=== PATIENT | male | born 1925 | race Caucasian/White ===

== ENCOUNTER 2016-06-09 09:22 | Observation (INO) | payer OTHER, BC ==
--- NOTE | 2016-06-09 09:25 | PDOC ---
History of Present Illness - General Chief Complaint: Chest Pain Stated Complaint: CHEST PAIN/SOB Time Seen by Provider: 06/09/16 09:23 History Source: Patient Exam Limitations: No Limitations - History of Present Illness Initial Comments: 06/09/16 09:25 89-year-old male with a past medical history of multiple prior ER visits for abdominal pain associated with anxiety He also has a history of hypertension, hyperlipidemia, CAD, CHF, anxiety Surgical history-cholecystectomy, PCI stent 2 Patient presents to the emergency department this morning, with a complaint of epigastric discomfort He states he can not describe his pain He denies any associated diaphoresis, nausea and vomiting His epigastric symptoms have resolved He states the abdominal pain is diffuse and crampy, and points to all over his abdomen when asked to localize the pain He denies any radiation of pain to the back He denies dysuria or hematuris And he states the pain is similar to what he has had in the past He denies any diarrhea, and he states that he's had intermittent constipation He denies any fevers or chills 06/09/16 09:26 PMH: CAD , HTN, HLD, diastolic dysfunciton, colits, chf, GERD, BPH, chronic abdominal pain PSH: Cholecystectomy, PCI Stent x 2 Meds: please see MAR Social: no current alcohol, drug, cigarette use ALL: NKDA GENERAL/CONSTITUTIONAL: No: fever, chills, weakness, loss of appetite. HEAD, EYES, EARS, NOSE AND THROAT: No: change in vision, ear pain, discharge, sore throat, throat swelling. CARDIOVASCULAR: No: chest pain, lightheadedness, palpitations, syncope RESPIRATORY: No: cough, shortness of breath, wheezing, hemoptysis, stridor. GASTROINTESTINAL: Yes: abdominal pain No: nausea, vomiting GENITOURINARY: No: dysuria, hematuria, frequency, urgency, flank pain. MUSCULOSKELETAL: No: back pain, neck pain, joint pain, muscle swelling or pain SKIN: No: lesions, pallor, rash or easy bruising. NEUROLOGIC: No: headache, vertigo, paresthesias, weakness ENDOCRINE: No: unexplained weight gain or loss HEMATOLOGIC/LYMPHATIC: No: anemia, easy bleeding, swelling nodes. GENERAL: The patient is in no acute distress, alert oriented, speaking in clear sentences HEAD: Normal with no signs of trauma. EYES: PERRLA, EOMI, sclera anicteric, conjunctiva clear. ENT: Ears normal, nares patent, oropharynx clear without exudates. Moist mucous membranes. NECK: Normal range of motion, supple without lymphadenopathy, JVD, or masses. LUNGS: Breath sounds equal, clear to auscultation bilaterally. No wheezes, and no crackles. HEART:Regular rate and rhythm, normal S1 and S2 without murmur, rub or gallop. ABDOMEN: Soft, nontender, normoactive bowel sounds. No involuntary guarding, no rebound. EXTREMITIES: Normal range of motion, no edema. No clubbing or cyanosis. No erythema, or tenderness. NEUROLOGICAL: Cranial nerves II through XII grossly intact. Normal speech. No focal neurological deficits. MUSCULOSKELETAL: Back non-tender to palpation, no CVA tenderness SKIN: Warm, Dry, normal turgor, no rashes or lesions noted. 06/09/16 09:57 06/10/16 08:25 Beta Dodie Contraindications (Core Measure): Yes: Not Prescribed Past History - Past Medical History Allergies/Adverse Reactions: Allergies Allergy/AdvReac Type Severity Reaction Status Date / Time No Known Drug Allergies Allergy Verified 06/09/16 09:24 Home Medications: Ambulatory Orders Atenolol [Tenormin -] 50 mg PO DAILY #0 tablet 08/02/12 Tamsulosin HCl [Flomax -] 0.4 mg PO HS 03/09/14 Olmesartan Medoxomil [Benicar -] 20 mg PO DAILY 09/29/14 Escitalopram Oxalate [Lexapro -] 20 mg PO DAILY 01/20/15 Aspirin [ASA -] 81 mg PO DAILY #30 tab.chew 02/04/15 Clonazepam [KlonoPIN] 1.5 tab PO TID 06/09/16 Dicyclomine HCl [Bentyl] 10 mg PO TID PRN 06/09/16 Simvastatin 40 mg PO DAILY 06/09/16 Anemia: No Asthma: No Cancer: No Cardiac Disorders: Yes (STENTX2 2008) CVA: No COPD: No CHF: No Dementia: No Diabetes: No Dialysis: No GI Disorders: Yes (GERD) Disorders: No HTN: Yes Hypercholesterolemia: Yes HIV: No Liver Disease: No Psychiatric Problems: Yes (ANXIETY) Seizures: No Thyroid Disease: No - Surgical History Abdominal Surgery: No Appendectomy: No Cardiac Surgery: Yes (STENT X2 2009) Cholecystectomy: Yes Lung Surgery: No Neurologic Surgery: No Orthopedic Surgery: No - Psycho/Social/Smoking Cessation Hx Anxiety: No Suicidal Ideation: No Smoking Status: No Smoking History: Never smoked Have you smoked in the past 12 months: No Number of Cigarettes Smoked Daily: 20 If you are a former smoker, when did you quit?: 45 YRS AGO Hx Alcohol Use: No Drug/Substance Use Hx: No Substance Use Type: None Hx Substance Use Treatment: No Cardiac Specific PMH - Complaint Specific PMHX Abdominal Aortic Aneurysm: No Angina: No Cardiac Arrhythmia: No Cardiac Stent: No GERD: Yes Pacemaker: No Pulmonary Embolus: No Valvular Heart Disease: No Peripheral Vascular Disease: No *Physical Exam - Vital Signs Last Vital Signs Temp Pulse Resp BP Pulse Ox 97.5 F L 67 17 132/73 97 06/10/16 06:27 06/10/16 06:27 06/10/16 06:27 06/10/16 06:27 06/10/16 06:27 Heart Score/ECG Review #1 ECG reviewed & interpreted by me at: 10:15 06/09/16 10:15 Twelve-lead EKG was performed and reviewed by me. There is normal sinus rhythm with a normal rate of 64bpm. The axis is normal. The intervals are abnormal - pr :226ms, QRS: 78ms, QTc:455ms . There are no ST or T wave abnormalities. !st degree AV block ED Treatment Course - LABORATORY CBC & Chemistry Diagram: 06/09/16 09:35 06/09/16 09:35 - ADDITIONAL ORDERS Additional order review: 06/09/16 09:35 RBC 4.91 MCV 90.2 MCHC 34.0 RDW 12.0 MPV 9.2 Neutrophils % 65.4 Lymphocytes % 23.9 Monocytes % 9.3 Eosinophils % 1.2 Basophils % 0.2 Medical Decision Making - Medical Decision Making 06/09/16 10:17 Will do labs Will do EKG Will do CXR Will contact pt PMD Will re assess 06/09/16 12:37 Laboratory Tests 06/09/16 06/09/16 06/09/16 09:35 09:35 09:35 WBC 9.1 Hgb 15.1 Hct 44.3 Plt Count 230 Neutrophils % 65.4 Lymphocytes % 23.9 BUN 14 Creatinine 0.8 Random Glucose 121 H D Creatine Kinase 63 Troponin I < 0.03 L Case reviewed with Hospitalist Pt describes epigastric discomfort Has cardiac history Will place on observation for BOBY *DC/Admit/Observation/Transfer Diagnosis at time of Disposition: Epigastric abdominal pain - Discharge Dispostion Condition at time of disposition: Stable Admit: Yes
[2016-06-09 09:51] LABS: BASOPHIL 0.2 % (0-2.0); EOSINOPHIL 1.2 % (0-4.5); MCH 30.7 pg (25.7-33.7); MEAN CELL VOLUME 90.2 fl (80-96); MEAN PLT VOLUME 9.2 fl (7.5-11.1); NEUTROPHILS 65.4 % (42.8-82.8); PLATELET COUNT 230 K/MM3 (134-434); WHITE BLOOD COUNT 9.1 K/mm3 (4.0-10.0)
[2016-06-09 10:05] LABS: ALBUMIN 3.9 g/dl (3.5-5.0); ALK PHOS 48 U/L (32-92); AMYLASE 88 U/L (25-125); ANION GAP 6 (8-16); BILIRUBIN,TOTAL 0.5 mg/dl (0.2-1.0); CALCIUM 8.8 mg/dl (8.4-10.2); CO2 23 mmol/L (22-28); CPK(DFH) 63 IU/L (38-174); CREATININE 0.8 mg/dl (0.6-1.3); GLUCOSE,RANDOM 121 mg/dl (74-106); SGOT/AST 33 U/L (10-42); SGPT/ALT 21 U/L (10-40); TOT PROT 6.6 g/dl (6.4-8.3)
[2016-06-09 10:34] LABS: TROPONIN I (DFP) < 0.03 ng/ml (0.03-0.50)
--- NOTE | 2016-06-09 12:43 | EKG ---
Test Reason : Blood Pressure : / mmHG Vent. Rate : 064 BPM Atrial Rate : 064 BPM P-R Int : 226 ms QRS Dur : 078 ms QT Int : 442 ms P-R-T Axes : 021 -16 -17 degrees QTc Int : 455 ms SINUS RHYTHM WITH 1ST DEGREE A-V BLOCK OTHERWISE NORMAL ECG WHEN COMPARED WITH ECG OF 22-DEC-2012 09:48, NO SIGNIFICANT CHANGE WAS FOUND Confirmed by BROOKE BETANCOURT MD ([id number]) on 06/09/2016 12:43:29 PM Referred By: RUBIA SHEN Confirmed By:BROOKE BETANCOURT MD
[2016-06-09] MEDS ORDERED: DICYCLOMINE HCL 10 MG CAPSULE PO PRN (12:47)
--- NOTE | 2016-06-09 12:49 | HP ---
[id number] male, with a past medical history of hypertension, hyperlipidemia, coronary artery disease (pCI stent 2), diastolic congestive heart failure, anxiety. Patient reports that yesterday evening he developed epigastric pain radiating to his left chest while lying down. Patient reports that the pain resolved on its own. However patient reports this morning while at home resting he developed epigastric pain radiating to his left chest with nausea and sought evaluation in the emergency department. Patient denies any syncopal episode, lightheadedness, or shortness of breath. ER course was notable for: (1) troponin 1 WNL (2) ekg, normal sinus rhythm with first-degree AV block unchanged from prior EKG Recent Travel: none PAST MEDICAL HISTORY:hypertension, hyperlipidemia, CAD, diastolic congestive heart failure, and anxiety. PAST SURGICAL HISTORY: cholecystectomy, PCI stent 2 Social History: tired, resides with his daughter Smoking:none Alcohol:none Drugs: none Family History: noncontributory Allergies No Known Drug Allergies Allergy (Verified 06/09/16 09:24) DENIES HOME MEDICATIONS: Home Medications Medication Instructions Recorded Atenolol [Tenormin -] 50 mg PO DAILY #0 tablet 08/02/12 Tamsulosin HCl [Flomax -] 0.4 mg PO HS 03/09/14 Olmesartan Medoxomil [Benicar -] 20 mg PO DAILY 09/29/14 Escitalopram Oxalate [Lexapro -] 20 mg PO DAILY 01/20/15 Aspirin [ASA -] 81 mg PO DAILY #30 tab.chew 02/04/15 Clonazepam [KlonoPIN] 1.5 tab PO TID 06/09/16 Dicyclomine HCl [Bentyl] 10 mg PO TID PRN 06/09/16 Simvastatin 40 mg PO DAILY 06/09/16 REVIEW OF SYSTEMS CONSTITUTIONAL: Absent: fever, chills, diaphoresis, generalized weakness, malaise, loss of appetite, weight change HEENT: Absent: rhinorrhea, nasal congestion, throat pain, throat swelling, difficulty swallowing, mouth swelling, ear pain, eye pain, visual changes CARDIOVASCULAR: present:chest pain Absent: syncope, palpitations, irregular heart rate, lightheadedness, peripheral edema RESPIRATORY: Absent: cough, shortness of breath, dyspnea with exertion, orthopnea, wheezing, stridor, hemoptysis GASTROINTESTINAL: present: Epigastric pain Absent: abdominal pain, abdominal distension, nausea, vomiting, diarrhea, constipation, melena, hematochezia GENITOURINARY: Absent: dysuria, frequency, urgency, hesitancy, hematuria, flank pain, genital pain MUSCULOSKELETAL: Absent: myalgia, arthralgia, joint swelling, back pain, neck pain SKIN: Absent: rash, itching, pallor HEMATOLOGIC/IMMUNOLOGIC: Absent: easy bleeding, easy bruising, lymphadenopathy, frequent infections ENDOCRINE: Absent: unexplained weight gain, unexplained weight loss, heat intolerance, cold intolerance NEUROLOGIC: Absent: headache, focal weakness or paresthesias, dizziness, unsteady gait, seizure, mental status changes, bladder or bowel incontinence PSYCHIATRIC: Absent: anxiety, depression, suicidal or homicidal ideation, hallucinations. PHYSICAL EXAMINATION Vital Signs - 24 hr 06/09/16 09:23 Temperature 98.5 F Pulse Rate 65 Respiratory 20 Rate Blood Pressure 157/83 O2 Sat by Pulse 97 Oximetry (%) physical examination GENERAL: Awake, alert, and fully oriented, anxious. HEAD: Normal with no signs of trauma. EYES: Pupils equal, round and reactive to light, extraocular movements intact, sclera anicteric, conjunctiva clear. No lid lag. EARS, NOSE, THROAT: Ears normal, nares patent, oropharynx clear without exudates. Moist mucous membranes. NECK: Normal range of motion, supple without lymphadenopathy, JVD, or masses. LUNGS: Breath sounds equal, clear to auscultation bilaterally. No wheezes, and no crackles. No accessory muscle use. HEART: Regular rate and rhythm, normal S1 and S2 without murmur, rub or gallop. ABDOMEN: Soft, nontender, not distended, normoactive bowel sounds, no guarding, no rebound, no masses. No hepatomegaly or splenomegaly. MUSCULOSKELETAL: Normal range of motion at all joints. No bony deformities or tenderness. No CVA tenderness. UPPER EXTREMITIES: 2+ pulses, warm, well-perfused. No cyanosis. No clubbing. No peripheral edema. LOWER EXTREMITIES: 2+ pulses, warm, well-perfused. No calf tenderness. No peripheral edema. NEUROLOGICAL: Cranial nerves II-XII intact. Normal speech. Normal gait. PSYCHIATRIC: Cooperative. Good eye contact. Appropriate mood and affect. SKIN: Warm, dry, normal turgor, no rashes or lesions noted, normal capillary refill. Laboratory Results - last 24 hr 06/09/16 06/09/16 06/09/16 09:35 09:35 09:35 WBC 9.1 RBC 4.91 Hgb 15.1 Hct 44.3 MCV 90.2 MCHC 34.0 RDW 12.0 Plt Count 230 MPV 9.2 Neutrophils % 65.4 Lymphocytes % 23.9 Monocytes % 9.3 Eosinophils % 1.2 Basophils % 0.2 Sodium 134 L Potassium 3.9 Chloride 105 Carbon Dioxide 23 Anion Gap 6 L BUN 14 Creatinine 0.8 Creat Clearance w eGFR > 60 Random Glucose 121 H D Calcium 8.8 Total Bilirubin 0.5 AST 33 D ALT 21 Alkaline Phosphatase 48 Creatine Kinase 63 Troponin I < 0.03 L Total Protein 6.6 Albumin 3.9 Total Amylase 88 Lipase 35 ASSESSMENT/PLAN: 1) card Chest pain R/O ACS - Patient appears anxious upon exam, doubt ACS, since patient has a significant history of coronary artery disease, will order serial troponin - pending ECHO - appreciate cardiology input, Dr Pendleton (pt's private senior brand manager) - continous cardiac monitoring hypertension - continue Benicar and atenolol, strict BP monitoring Diastolic congestive heart failure - Patient appears euvolemic on exam Coronary artery disease - Pending lipid profile in a.m., continue simvastatin 2)GI - Lengthy conversation with the daughter, reports abdominal pain is associated with his anxiety. - Continue Bentyl 3) BPH - continue Flomax 4) psych Anxiety - Continue when necessary Klonopin dosage verified with [facility] pharmacist F/E/N - Low-sodium diet - replete electrolytes when necessary PPX - OOB - Protonix Dispo: requires telemetry observation left into midnight length of stay Visit type - Emergency Visit Emergency Visit: Yes ED Registration Date: 06/09/16 Care time: The patient presented to the Emergency Department on the above date and was hospitalized for further evaluation of their emergent condition. - New Patient This patient is new to me today: Yes Date on this admission: 06/09/16 - Critical Care Critical Care patient: No
[2016-06-09] MEDS ORDERED: clonazePAM 0.5 MG TABLET PO PRN ×2 (12:57→13:21)
[2016-06-09 15:54] LABS: CPK(DFH) 64 IU/L (38-174)
[2016-06-09 16:33] LABS: TROPONIN I (DFP) < 0.03 ng/ml (0.03-0.50)
[2016-06-09 16:39] LABS: URINE APPEARANCE Clear; URINE BILIRUBIN Negative (NEGATIVE); URINE BLOOD Negative (NEGATIVE); URINE GLUCOSE (UA) Negative (NEGATIVE); URINE KETONE Negative (NEGATIVE); URINE LEUK ESTERASE Negative (NEGATIVE); URINE NITRITE Negative (NEGATIVE); URINE PROTEIN Negative (NEGATIVE); URINE UROBILINOGEN 0.2 E.U/dl (0.2-1.0)
[2016-06-09 16:40] LABS: URINE COLOR YELLOW
[2016-06-09 17:15] VITALS: BMI 27.7
[2016-06-09] MEDS ORDERED: TAMSULOSIN HCL 0.4 MG CAP.ER.24H (FP) PO SCH (22:00)
[2016-06-09] MEDS ORDERED: ATORVASTATIN CA 20 MG TABLET (FP) PO SCH (22:00)
[2016-06-10 01:23] LABS: TROPONIN I < 0.02 ng/ml (0.00-0.05)
[2016-06-10 09:47] LABS: MEAN PLT VOLUME 9.5 fl (7.5-11.1)
--- NOTE | 2016-06-10 09:53 | PN ---
[id number] OBJECTIVE:patient is a 89-year-old male, with a past medical history of hypertension, hyperlipidemia, coronary artery disease (pCI stent 2), diastolic congestive heart failure, anxiety. pt was admitted to observation chest pain r/ o acs Vital Signs Period Temp Pulse Resp BP Sys/[place] Pulse Ox Last 24 Hr 97.5 F-97.6 F 67-69 17-18 132-150/68-73 94-97 GENERAL: The patient is awake, alert, and fully oriented, anxious HEAD: Normal with no signs of trauma. EYES: PERRL, extraocular movements intact, sclera anicteric, conjunctiva clear. No ptosis. ENT: Ears normal, nares patent, oropharynx clear without exudates, moist mucous membranes. NECK: Trachea midline, full range of motion, supple. LUNGS: Breath sounds equal, clear to auscultation bilaterally, no wheezes, no crackles, no accessory muscle use. HEART: Regular rate and rhythm, S1, S2 without murmur, rub or gallop. ABDOMEN: Soft, nontender, nondistended, normoactive bowel sounds, no guarding, no rebound, no hepatosplenomegaly, no masses. EXTREMITIES: 2+ pulses, warm, well-perfused, no edema. NEUROLOGICAL: Cranial nerves II through XII grossly intact. Normal speech, gait not observed. PSYCH: Normal mood, normal affect. SKIN: Warm, dry, normal turgor, no rashes or lesions noted Laboratory Results - last 24 hr 06/10/16 06/10/16 00:01 00:01 Creatine Kinase Cancelled 66 Troponin I Cancelled < 0.02 CBC WBC 10.1 K/mm3 (4.0-10.0) H 06/10/16 09:15 RBC 5.29 M/mm3 (4.00-5.60) 06/10/16 09:15 Hgb 16.1 GM/dl (11.7-16.9) 06/10/16 09:15 Hct 48.0 % (35.4-49) 06/10/16 09:15 MCV 90.8 fl (80-96) 06/10/16 09:15 MCHC 33.5 g/dl (32.0-35.9) 06/10/16 09:15 RDW 12.3 % (11.9-15.9) 06/10/16 09:15 Plt Count 234 K/MM3 (134-434) 06/10/16 09:15 MPV 9.5 fl (7.5-11.1) 06/10/16 09:15 Neutrophils % 66.4 % (42.8-82.8) 06/10/16 09:15 Lymphocytes % 23.8 % (8-40) 06/10/16 09:15 Monocytes % 8.5 % (3.8-10.2) 06/10/16 09:15 Eosinophils % 1.1 % (0-4.5) 06/10/16 09:15 Basophils % 0.2 % (0-2.0) 06/10/16 09:15 CMP Sodium 136 mmol/L (136-145) 06/10/16 08:15 Potassium 3.6 mmol/L (3.5-5.1) 06/10/16 08:15 Chloride 103 mmol/L (98-107) 06/10/16 08:15 Carbon Dioxide 24 mmol/L (22-28) 06/10/16 08:15 Anion Gap 9 (8-16) 06/10/16 08:15 BUN 11 mg/dl (7-18) D 06/10/16 08:15 Creatinine 0.8 mg/dl (0.6-1.3) 06/10/16 08:15 Creat Clearance w eGFR > 60 (>60) 06/10/16 08:15 Random Glucose 133 mg/dl (74-106) H 06/10/16 08:15 Calcium 9.2 mg/dl (8.4-10.2) 06/10/16 08:15 Phosphorus 2.7 mg/dl (2.5-4.6) 06/10/16 08:15 Magnesium 2.0 mg/dL (1.8-2.4) 06/10/16 08:15 Total Bilirubin 0.3 mg/dl (0.2-1.0) D 06/10/16 08:15 AST 37 U/L (10-42) 06/10/16 08:15 ALT 22 U/L (10-40) 06/10/16 08:15 Alkaline Phosphatase 49 U/L (32-92) 06/10/16 08:15 Creatine Kinase 66 IU/L (39-308) 06/10/16 00:01 Troponin I < 0.02 ng/ml (0.00-0.05) 06/10/16 00:01 Total Protein 6.8 g/dl (6.4-8.3) 06/10/16 08:15 Albumin 3.9 g/dl (3.5-5.0) 06/10/16 08:15 Triglycerides 157 mg/dl (35-160) D 06/10/16 08:15 Cholesterol 112 mg/dl 06/10/16 08:15 Total LDL Cholesterol 44 mg/dl 06/10/16 08:15 HDL Cholesterol 37 mg/dl (29-89) 06/10/16 08:15 Total Amylase 88 U/L (25-125) 06/09/16 09:35 Lipase 35 U/L (22-51) 06/09/16 09:35 Laboratory Tests 06/09/16 06/09/16 06/10/16 09:35 14:55 00:01 Troponin I < 0.03 L < 0.03 L < 0.02 Active Medications Generic Name Dose Route Start Last Admin Trade Name Freq PRN Reason Stop Dose Admin Aspirin 81 mg 06/10/16 10:00 Asa - PO DAILY [facility] Atenolol 50 mg 06/10/16 10:00 Tenormin - PO DAILY [facility] Atorvastatin Calcium 20 mg 06/09/16 22:00 06/09/16 21:35 Lipitor - PO 20 mg HS JAMEEL Administration Clonazepam 1.5 mg 06/09/16 13:21 06/09/16 21:35 Klonopin - PO 1.5 mg TID PRN Administration ANXIETY Dicyclomine HCl 10 mg 06/09/16 12:47 Bentyl - PO TID PRN PAIN Escitalopram Oxalate 20 mg 06/10/16 10:00 Lexapro - PO DAILY [facility] Tamsulosin HCl 0.4 mg 06/09/16 22:00 06/09/16 21:36 Flomax - PO 0.4 mg HS JAMEEL Administration Valsartan 160 mg 06/10/16 10:00 Diovan - PO DAILY [facility] ASSESSMENT/PLAN: 1) card Chest pain R/O ACS - troponin x 3 wnl - echo grade 1 diastolic dysfunction EF 55-60% - appreciate cardiology input, Dr Pendleton (pt's private upper leather sorter) - continous cardiac monitoring hypertension - continue Benicar and atenolol, strict BP monitoring Diastolic congestive heart failure - Patient appears euvolemic on exam Coronary artery disease - lipid panel wnl, continue simvastatin 2)GI - Lengthy conversation with the daughter, reports abdominal pain is associated with his anxiety. - Continue Bentyl 3) BPH - continue Flomax 4) psych Anxiety - Continue when necessary Klonopin dosage verified with [facility] pharmacist F/E/N - Low-sodium diet - replete electrolytes when necessary PPX - OOB - Protonix Dispo: requires telemetry observation, 2mn length of stay Visit type - Emergency Visit Emergency Visit: Yes ED Registration Date: 06/09/16 Care time: The patient presented to the Emergency Department on the above date and was hospitalized for further evaluation of their emergent condition. - New Patient This patient is new to me today: No - Critical Care Critical Care patient: No - Discharge Referral Referred to [facility] No
[2016-06-10] MEDS ORDERED: PATIENT'S OWN MEDICATION (NON-FORMULARY) (Simvastatin [Simvastatin] 40 MG) PO SCH (10:00)
[2016-06-10] MEDS ORDERED: ATENOLOL 50 MG TABLET (FP) PO SCH (10:00)
[2016-06-10] MEDS ORDERED: ASPIRIN 81 MG CHEWABLE TABLETS PO SCH (10:00)
[2016-06-10] MEDS ORDERED: ESCITALOPRAM OXALATE 20 MG TABLET (FP) PO SCH (10:00)
[2016-06-10] MEDS ORDERED: PATIENT'S OWN MEDICATION (NON-FORMULARY) (Olmesartan Medoxomil 20 MG) PO SCH (10:00)
[2016-06-10] MEDS ORDERED: VALSARTAN 160 MG TABLET (UD) PO SCH (10:00)
[2016-06-10 10:04] LABS: BASOPHIL 0.2 % (0-2.0); EOSINOPHIL 1.1 % (0-4.5); MCH 30.4 pg (25.7-33.7); MCHC 33.5 g/dl (32.0-35.9); MEAN CELL VOLUME 90.8 fl (80-96); NEUTROPHILS 66.4 % (42.8-82.8); PLATELET COUNT 234 K/MM3 (134-434); RDW 12.3 % (11.9-15.9); WHITE BLOOD COUNT 10.1 K/mm3 (4.0-10.0)
[2016-06-10 10:13] LABS: ALBUMIN 3.9 g/dl (3.5-5.0); ALK PHOS 49 U/L (32-92); ANION GAP 9 (8-16); BILIRUBIN,TOTAL 0.3 mg/dl (0.2-1.0); CALCIUM 9.2 mg/dl (8.4-10.2); CO2 24 mmol/L (22-28); COCKROFT - GAULT 71.18; CREATININE 0.8 mg/dl (0.6-1.3); GLUCOSE,RANDOM 133 mg/dl (74-106); PHOSPHOROUS 2.7 mg/dl (2.5-4.6); SGOT/AST 37 U/L (10-42); SGPT/ALT 22 U/L (10-40); TOT PROT 6.8 g/dl (6.4-8.3)
[2016-06-10 13:08] LABS: CHOLESTEROL 112 mg/dl
--- NOTE | 2016-06-10 13:53 | CON.CARD ---
Consult Consult Specialty:: Cardiology Referred by:: Bony Reason for Consultation:: Epigastric discomfort - History of Present Illness Chief Complaint: Epigastric discomfort History of Present Illness: Patient is a 89-year-old male, with a past medical history of hypertension, hyperlipidemia, coronary artery disease (PCI stent ABIGAIL anomolous LCx OM with SURGICAL SUPERVISOR mid RCA 10/12/2006), diastolic congestive heart failure, GERD, irritable bowel syndrome with recurrent abdominal pain presented with non-exertional epigastric pain radiating to his left chest while lying down. Patient reports that the pain resolved on its own. However patient reports this morning while at home resting he developed epigastric pain radiating to his left chest with nausea and sought evaluation in the emergency department. Patient denies any near or true syncopal episodes, palpitations, shortness of breath, orthopnea, PND or LE edema. Recent Travel: none PAST MEDICAL HISTORY:hypertension, hyperlipidemia, CAD, diastolic congestive heart failure, and anxiety. PAST SURGICAL HISTORY: cholecystectomy, PCI stent 2 Social History: tired, resides with his daughter Smoking:none Alcohol:none Drugs: none Family History: noncontributory Allergies No Known Drug Allergies Allergy (Verified 06/09/16 09:24) DENIES - History Source History Provided By: Patient Limitations to Obtaining History: No Limitations - Past Medical History Cardio/Vascular: Yes: CAD (history of 2 prior stents), HTN, Hyperlipdemia Gastrointestinal: Yes: GERD, Other (CHRONIC ABDOMINAL PAIN) Renal/: Yes: BPH Psych: Yes: Anxiety, Depression - Past Surgical History Past Surgical History: Yes: Cholecystectomy, Stent - Alcohol/Substance Use Hx Alcohol Use: No - Smoking History Smoking history: Never smoked Have you smoked in the past 12 months: No Aproximately how many cigarettes per day: 20 If you are a former smoker, when did you quit?: 45 YRS AGO Home Medications - Allergies Allergies/Adverse Reactions: Allergies Allergy/AdvReac Type Severity Reaction Status Date / Time No Known Drug Allergies Allergy Verified 06/09/16 09:24 - Home Medications Home Medications: Ambulatory Orders Atenolol [Tenormin -] 50 mg PO DAILY #0 tablet 08/02/12 Tamsulosin HCl [Flomax -] 0.4 mg PO HS 03/09/14 Olmesartan Medoxomil [Benicar -] 20 mg PO DAILY 09/29/14 Escitalopram Oxalate [Lexapro -] 20 mg PO DAILY 01/20/15 Aspirin [ASA -] 81 mg PO DAILY #30 tab.chew 02/04/15 Clonazepam [KlonoPIN] 1.5 tab PO TID 06/09/16 Dicyclomine HCl [Bentyl] 10 mg PO TID PRN 06/09/16 Simvastatin 40 mg PO DAILY 06/09/16 Review of Systems - Review of Systems Gastrointestinal: reports: Abdominal Pain Vital Signs: Vital Signs Temperature 97.5 F L 06/10/16 06:27 Pulse Rate 67 06/10/16 06:27 Respiratory Rate 17 06/10/16 09:00 Blood Pressure 132/73 06/10/16 06:27 O2 Sat by Pulse Oximetry (%) 97 06/10/16 09:00 Constitutional: Yes: No Distress, Calm Neck: Yes: Supple Respiratory: Yes: Regular, CTA Bilaterally Gastrointestinal: Yes: Normal Bowel Sounds Cardiovascular: Yes: Regular Rate and Rhythm JVD: No Carotid Bruit: No Heart Sounds: Yes: S1, S2 Edema: No - Other Data Labs, Other Data: CBC, BMP 06/10/16 09:15 06/10/16 08:15 Troponin, BNP 06/10/16 06/10/16 00:01 00:01 Troponin I Cancelled < 0.02 Troponin, BNP 06/10/16 06/10/16 00:01 00:01 Troponin I Cancelled < 0.02 SR 1st dev avb Ejection Fraction %: LVEF > or = 40 % Imaging - Results Chest X-ray: Report Reviewed (NAD) Problem List - Problems (1) Epigastric abdominal pain Code(s): R10.13 - EPIGASTRIC PAIN (2) CAD (coronary artery disease) Code(s): I25.10 - ATHSCL HEART DISEASE OF [place] CORONARY ARTERY W/O ANG PCTRS Qualifiers: Coronary Disease-Associated Artery/Lesion type: [place] artery [place] vs. transplanted heart: [place] heart Associated angina: without angina Qualified Code(s): I25.10 - Atherosclerotic heart disease of [place] coronary artery without angina pectoris (3) HTN (hypertension) Code(s): I10 - ESSENTIAL (PRIMARY) HYPERTENSION Qualifiers: Hypertension type: essential hypertension Qualified Code(s): I10 - Essential (primary) hypertension (4) Hyperlipidemia Code(s): E78.5 - HYPERLIPIDEMIA, UNSPECIFIED Qualifiers: Hyperlipidemia type: pure hypercholesterolemia Qualified Code(s): E78.00 - Pure hypercholesterolemia, unspecified; E78.0 - Pure hypercholesterolemia (5) Status post insertion of drug eluting coronary artery stent Code(s): Z95.5 - PRESENCE OF CORONARY ANGIOPLASTY IMPLANT AND GRAFT Assessment/Plan 06/09/2016 Normal LV and RV size and fxn, mild [place], [place], abnl LV compliance 12/07/2014 No ischemia, LVEF 68% 1. Atypical chest pain syndrome, ruled out for [place] 2. CAD s/p PCI(stent), angina pectoris 3. Diastolic dysfunction 4. HTN/HCVD 5. Hyperlipidemia 6. GERD, irritable bowel sydrome with recurrent abd discomfort 7. Anxiety d/o P:1. Ruled out for [place] 2. Continue Atenolol 50 qd, Benicar 20 qd, ASA 81 qd, Zocor 40 qhs 3. July d/c with f/u with Dr. Plascencia in office 2 weeks 4. Thank you for consultative opportunity
[2016-06-10 14:11] VITALS: BP 125/68; PULSE 66; TEMP 97.6
== END 2016-06-10 14:49 | disposition home or self-care (01) ==
LOC: FER 09:22 → FM/S 15:54
PROVIDERS: ADMIT Internal Medicine; ATTEND Nurse Practitioner Family
DX: R07.89 Other chest pain (principal); I10 Essential (primary) hypertension; I25.10 Atherosclerotic heart disease of native coronary artery without angina pectoris; I50.30 Unspecified diastolic (congestive) heart failure; E78.5 Hyperlipidemia, unspecified; F41.9 Anxiety disorder, unspecified; Z95.5 Presence of coronary angioplasty implant and graft; K21.9 Gastro-esophageal reflux disease without esophagitis; K58.9 Irritable bowel syndrome, unspecified; Z90.49 Acquired absence of other specified parts of digestive tract
CPT/HCPCS: 36415; 71020-TC; 80053; 80061; 81003; 82150; 82550; 83690; 83735; 84100; 84484; 85025; 93005; 93306-TC; 99283-25; G0378

== ENCOUNTER 2016-08-01 11:41 | Emergency (ER) | payer OTHER, BC ==
--- NOTE | 2016-08-01 11:52 | PDOC ---
History of Present Illness - General Chief Complaint: Pain, Acute Stated Complaint: abd pain Time Seen by Provider: 08/01/16 11:44 History Source: Patient Exam Limitations: No Limitations - History of Present Illness Travel History: No Initial Comments: 08/01/16 11:49 89 y/o male with abdominal pain since yesterday. No fever or chills. Has diarrhea but no N/V. No fall or trauma. Denies dysuira or back pain. Has not taken anything for the pain. No SOB or chest pain. Timing/Duration: reports: constant Quality: reports: moderate Abdominal Pain Onset Location: reports: suprapubic Pain Radiation: reports: no radiation Past History - Past Medical History Allergies/Adverse Reactions: Allergies Allergy/AdvReac Type Severity Reaction Status Date / Time No Known Drug Allergies Allergy Verified 06/09/16 09:24 Home Medications: Ambulatory Orders Atenolol [Tenormin -] 50 mg PO DAILY #0 tablet 08/02/12 Tamsulosin HCl [Flomax -] 0.4 mg PO HS 03/09/14 Olmesartan Medoxomil [Benicar -] 20 mg PO DAILY 09/29/14 Escitalopram Oxalate [Lexapro -] 20 mg PO DAILY 01/20/15 Aspirin [ASA -] 81 mg PO DAILY #30 tab.chew 02/04/15 Clonazepam [KlonoPIN] 1.5 tab PO TID 06/09/16 Dicyclomine HCl [Bentyl] 10 mg PO TID PRN 06/09/16 Simvastatin 40 mg PO DAILY 06/09/16 Anemia: No Asthma: No Cancer: No Cardiac Disorders: Yes (STENTX2 2008) CVA: No COPD: No CHF: No Dementia: No Diabetes: No Dialysis: No GI Disorders: Yes (GERD) Disorders: No HTN: Yes Hypercholesterolemia: Yes HIV: No Liver Disease: No Psychiatric Problems: Yes (ANXIETY) Seizures: No Thyroid Disease: No - Surgical History Abdominal Surgery: No Appendectomy: No Cardiac Surgery: Yes (STENT 2008) Cholecystectomy: Yes Lung Surgery: No Neurologic Surgery: No Orthopedic Surgery: No - Psycho/Social/Smoking Cessation Hx Anxiety: No Suicidal Ideation: No Smoking Status: No Smoking History: Former smoker Have you smoked in the past 12 months: No Number of Cigarettes Smoked Daily: 20 If you are a former smoker, when did you quit?: 45 YRS AGO Information on smoking cessation initiated: No Hx Alcohol Use: No Drug/Substance Use Hx: No Substance Use Type: None Hx Substance Use Treatment: No Abd/GI Specific PMHX - Complaint Specific PMHX GERD: Yes Review of Systems - Review of Systems Able to Perform ROS?: Yes Is the patient limited [place] proficient: No Constitutional: No: Chills, Fever Respiratory: No: Cough, Shortness of Breath Cardiac (ROS): No: Chest Pain, Palpitations ABD/GI: Yes: Diarrhea. No: Nausea, Vomiting : No: Burning Musculoskeletal: No: Back Pain All Other Systems: Reviewed and Negative *Physical Exam - Vital Signs Last Vital Signs Temp Pulse Resp BP Pulse Ox 98.9 F 75 18 165/95 100 08/01/16 11:42 08/01/16 11:42 08/01/16 11:42 08/01/16 11:42 08/01/16 11:42 - Physical Exam General Appearance: Yes: Nourished, Appropriately Dressed HEENT: positive: EOMI, CECILIA, Normal ENT Inspection, Pharynx Normal Neck: positive: Trachea midline, Supple Respiratory/Chest: positive: Lungs Clear, Normal Breath Sounds Cardiovascular: positive: Regular Rhythm, Regular Rate, S1, S2 Vascular Pulses: Femoral (R): 4+, Femoral (L): 4+, Carotid (R): 4+, Carotid (L) : 4+, Dorsalis-Pedis (R): 4+, Doralis-Pedis (L): 4+ Gastrointestinal/Abdominal: positive: Normal Bowel Sounds, Tender (RLQ and suprapubic tenderness, no LLQ or LUQ tenderness +BS, no pulsatile mass noted) Musculoskeletal: positive: Normal Inspection. negative: CVA Tenderness Extremity: positive: Normal Capillary Refill, Normal Inspection, Normal Range of Motion Integumentary: positive: Normal Color, Dry, Warm Neurologic: positive: summer counselor II-XII NML intact, Fully Oriented, Alert, Normal Mood/ Affect, Normal Response, Motor Strength 5/5 ED Treatment Course - LABORATORY CBC & Chemistry Diagram: 08/01/16 11:53 08/01/16 11:53 - ADDITIONAL ORDERS Additional order review: 08/01/16 13:30 CT abdomen/pelvis, enlarged prostate, no acute pathology Progress Note - Progress Note Progress Note: Pt is doing well, CT negative and labs normal with normal vitals Will discharge home with follow up with PMD if worsen return to ER *DC/Admit/Observation/Transfer Diagnosis at time of Disposition: Abdominal pain of unknown etiology - Discharge Dispostion Disposition: HOME Condition at time of disposition: Stable Admit: No - Patient Instructions Printed Discharge Instructions: DI for Abdominal Pain-Adult Additional Instructions: Fluids, rest, Tylenol If worsen return to ER
[2016-08-01 11:58] VITALS: BMI 26.6
[2016-08-01] MEDS ORDERED: SODIUM CHLORIDE 1,000 ML IV SCH (12:00)
[2016-08-01 12:13] LABS: BASOPHIL 0.5 % (0-2.0); EOSINOPHIL 1.1 % (0-4.5); MCH 30.3 pg (25.7-33.7); MCHC 33.6 g/dl (32.0-35.9); MEAN CELL VOLUME 90.1 fl (80-96); MEAN PLT VOLUME 9.1 fl (7.5-11.1); NEUTROPHILS 59.4 % (42.8-82.8); PLATELET COUNT 215 K/MM3 (134-434); RDW 12.3 % (11.9-15.9); WHITE BLOOD COUNT 9.6 K/mm3 (4.0-10.8)
[2016-08-01 12:22] LABS: ALBUMIN 4.2 g/dl (3.5-5.0); ALK PHOS 56 U/L (32-92); ANION GAP 10 (8-16); CALCIUM 9.7 mg/dl (8.4-10.2); CO2 23 mmol/L (22-28); COCKROFT - GAULT 60.68; CREATININE 0.9 mg/dl (0.6-1.3); GLUCOSE,RANDOM 102 mg/dl (74-106); SGOT/AST 23 U/L (10-42); SGPT/ALT 20 U/L (10-40); TOT PROT 7.3 g/dl (6.4-8.3)
[2016-08-01 12:32] LABS: URINE APPEARANCE Clear; URINE BILIRUBIN Negative (NEGATIVE); URINE BLOOD Negative (NEGATIVE); URINE GLUCOSE (UA) Negative (NEGATIVE); URINE KETONE Negative (NEGATIVE); URINE LEUK ESTERASE Negative (NEGATIVE); URINE NITRITE Negative (NEGATIVE); URINE PROTEIN Negative (NEGATIVE); URINE UROBILINOGEN 0.2 E.U/dl (0.2-1.0)
[2016-08-01 12:33] LABS: URINE COLOR YELLOW
[2016-08-01 13:52] VITALS: BP 130/89; PULSE 73; TEMP 98
== END 2016-08-01 13:54 | disposition home or self-care (01) ==
LOC: FER 11:41
DX: R10.9 Unspecified abdominal pain (principal); R41.9 Unspecified symptoms and signs involving cognitive functions and awareness; I51.9 Heart disease, unspecified; Z95.5 Presence of coronary angioplasty implant and graft; Z87.891 Personal history of nicotine dependence
CPT/HCPCS: 36415; 74177-TC; 80053; 81003; 83690; 85025; 99283-25

== ENCOUNTER 2016-10-25 18:24 | Observation (INO) | payer OTHER, BC ==
[2016-10-25 19:12] LABS: MCHC 33.8 g/dl (32.0-35.9)
[2016-10-25 19:16] LABS: EOSINOPHIL 1.6 % (0-4.5); MEAN CELL VOLUME 88.6 fl (80-96); MEAN PLT VOLUME 9.2 fl (7.5-11.1); NEUTROPHILS 61.8 % (42.8-82.8); PLATELET COUNT 255 K/MM3 (134-434); RDW 12.3 % (11.9-15.9); WHITE BLOOD COUNT 9.6 K/mm3 (4.0-10.8)
[2016-10-25 19:22] LABS: INR 1.01 (0.82-1.09); PROTHROMBIN TIME (PATIENT) 11.3 SEC (10.2-13.0)
[2016-10-25 19:24] LABS: CPK 73 IU/L (39-308)
[2016-10-25 19:25] LABS: ALBUMIN 4.1 g/dl (3.5-5.0); ALK PHOS 54 U/L (32-92); ANION GAP 7 (8-16); BILIRUBIN,TOTAL 0.8 mg/dl (0.2-1.0); CALCIUM 9.6 mg/dl (8.4-10.2); CO2 26 mmol/L (22-28); CREATININE 0.8 mg/dl (0.6-1.3); GLUCOSE,RANDOM 82 mg/dl (74-106); MAGNESIUM 1.8 mg/dL (1.8-2.4); SGOT/AST 25 U/L (10-42); SGPT/ALT 26 U/L (10-40)
--- NOTE | 2016-10-25 19:30 | PDOC ---
History of Present Illness - General History Source: Patient - History of Present Illness Initial Comments: 10/25/16 19:46 89 y/o M with a PMHx of hypertension, hyperlipidemia, CAD, CHF, anxiety, cholecystectomy, PCI stent 2 presents to the ED with sharp chest pain today. He reports associated diaphoresis, SOB, and chills. He also reports some nausea , and 2-3 episodes of diarrhea. Patient took 1 xanax before the pain occurred, and after he began to feel the chest pain he immediately took 2 more xanax. Patient states the pain resolved after taking the xanax. PCP: Dr. Alessandro Lovett <Landy Meade - Last Filed: 10/25/16 19:46> <Samantha Garcia - Last Filed: 10/25/16 20:44> - General Chief Complaint: Chest Pain Stated Complaint: CHEST PAIN, ANXIETY Time Seen by Provider: 10/25/16 19:29 Past History <Landy Meade - Last Filed: 10/25/16 19:46> - Past Medical History Anemia: No Asthma: No Cancer: No Cardiac Disorders: Yes (STENTX2 2008) CVA: No COPD: No CHF: No Dementia: No Diabetes: No Dialysis: No GI Disorders: Yes (GERD) Disorders: No HTN: Yes Hypercholesterolemia: Yes HIV: No Liver Disease: No Psychiatric Problems: Yes (ANXIETY) Seizures: No Thyroid Disease: No - Surgical History Abdominal Surgery: No Appendectomy: No Cardiac Surgery: Yes (STENT X2 2008) Cholecystectomy: Yes Lung Surgery: No Neurologic Surgery: No Orthopedic Surgery: No - Psycho/Social/Smoking Cessation Hx Anxiety: No Suicidal Ideation: No Smoking Status: No Smoking History: Former smoker Have you smoked in the past 12 months: No Number of Cigarettes Smoked Daily: 20 If you are a former smoker, when did you quit?: 1973 Information on smoking cessation initiated: No Hx Alcohol Use: (occasional) Drug/Substance Use Hx: No Substance Use Type: None Hx Substance Use Treatment: No <Samantha Garcia - Last Filed: 10/25/16 20:44> - Past Medical History Allergies/Adverse Reactions: Allergies Allergy/AdvReac Type Severity Reaction Status Date / Time No Known Drug Allergies Allergy Verified 10/25/16 18:26 Home Medications: Ambulatory Orders Atenolol [Tenormin -] 50 mg PO DAILY #0 tablet 08/02/12 Tamsulosin HCl [Flomax -] 0.4 mg PO HS 03/09/14 Olmesartan Medoxomil [Benicar -] 20 mg PO DAILY 09/29/14 Escitalopram Oxalate [Lexapro -] 20 mg PO DAILY 01/20/15 Aspirin [ASA -] 81 mg PO DAILY #30 tab.chew 02/04/15 Clonazepam [KlonoPIN] 0.5 tab PO TID 06/09/16 Dicyclomine HCl [Bentyl] 10 mg PO TID PRN 06/09/16 Simvastatin 40 mg PO DAILY 06/09/16 Review of Systems - Review of Systems Able to Perform ROS?: Yes (vague historian/high) Comments:: 10/25/16 19:46 GENERAL/CONSTITUTIONAL: (+) chills. No fever. No weakness. HEAD, EYES, EARS, NOSE AND THROAT: No change in vision. No ear pain or discharge. No sore throat. CARDIOVASCULAR: (+) chest pain, (+) shortness of breath. RESPIRATORY: No cough, wheezing, or hemoptysis. GASTROINTESTINAL: (+) nausea, diarrhea. No vomiting or constipation. GENITOURINARY: No dysuria, frequency, or change in urination. MUSCULOSKELETAL: No joint or muscle swelling or pain. No neck or back pain. SKIN: No rash NEUROLOGIC: No headache, vertigo, loss of consciousness, or change in strength/ sensation. ENDOCRINE: No increased thirst. No abnormal weight change. HEMATOLOGIC/LYMPHATIC: No anemia, easy bleeding, or history of blood clots. ALLERGIC/IMMUNOLOGIC: No hives or skin allergy. <Landy Meade - Last Filed: 10/25/16 19:46> *Physical Exam - Vital Signs Last Vital Signs Temp Pulse Resp BP Pulse Ox 98 F 68 18 136/79 96 10/25/16 18:25 10/25/16 18:25 10/25/16 18:25 10/25/16 18:25 10/25/16 18:25 - Physical Exam Comments: 10/25/16 19:46 GENERAL: Awake, alert, and fully oriented, in no acute distress HEAD: No signs of trauma EYES: PERRLA, EOMI, sclera anicteric, conjunctiva clear ENT: Auricles normal inspection, hearing grossly normal, nares patent, oropharynx clear without exudates. Moist mucosa NECK: Normal ROM, supple, no lymphadenopathy, JVD, or masses LUNGS: Breath sounds equal, clear to auscultation bilaterally. No wheezes, and no crackles HEART: Regular rate and rhythm, normal S1 and S2, no murmurs, rubs or gallops ABDOMEN: Soft, nontender, normoactive bowel sounds. No guarding, no rebound. No masses EXTREMITIES: Normal range of motion, no edema. No clubbing or cyanosis. No cords, erythema, or tenderness NEUROLOGICAL: Cranial nerves II through XII grossly intact. Normal speech, normal gait SKIN: Warm, Dry, normal turgor, no rashes or lesions noted. <Landy Meade - Last Filed: 10/25/16 19:46> - Vital Signs Last Vital Signs Temp Pulse Resp BP Pulse Ox 98 F 68 18 136/79 96 10/25/16 18:25 10/25/16 18:25 10/25/16 18:25 10/25/16 18:25 10/25/16 18:25 <Samantha Garcia - Last Filed: 10/25/16 20:44> Heart Score/ECG Review - History History: Moderately suspicious - Electrocardiogram EKG: Non specific repolarization disturbance - Age Age: >/= 65 - Risk Factors Risk Factors Heart Score: Yes Hx Hypercholesterolemia, Yes Hx Hypertension, Yes Positive family hx of cardiac disease Based on the list above the patient has:: >/=3 risk factors or Hx atherosclerotic disease - Troponin Troponin: </= normal limit - Score Heart Score - Total: 6 - ECG Impressions Comment:: EKG 18:40- Sinus rhythm, 1st deg AV block, ventricular rate 65 bpm, LAD, LBBB Prior EKG 06/09/16- sinus rhythm with 1st deg AV block (LBBB absent) Prior EKG 02/03/15- Sinus rhythm with 1st deg AV block, LBBB present <Samantha Garcia - Last Filed: 10/25/16 20:44> ED Treatment Course - LABORATORY CBC & Chemistry Diagram: 10/25/16 18:58 10/25/16 18:58 - ADDITIONAL ORDERS Additional order review: Laboratory Results 10/25/16 10/25/16 10/25/16 18:58 18:58 18:58 INR 1.01 Sodium 137 Potassium 4.2 Chloride 104 Carbon Dioxide 26 Anion Gap 7 L BUN 13 Creatinine 0.8 Creat Clearance w eGFR > 60 Random Glucose 82 Calcium 9.6 Magnesium 1.8 Total Bilirubin 0.8 AST 25 ALT 26 D Alkaline Phosphatase 54 Creatine Kinase 73 Total Protein 7.0 Albumin 4.1 10/25/16 18:58 RBC 5.30 MCV 88.6 MCHC 33.8 RDW 12.3 MPV 9.2 Neutrophils % 61.8 Lymphocytes % 23.8 D Monocytes % 11.8 H Eosinophils % 1.6 Basophils % 1.0 - RADIOLOGY Radiograph Interpretation: 10/25/16 19:31 Chest X-Ray Reported by Dr. Rhianna Doran Impression: Interval mild bibasal atelectatic changes. Cannot rule out superimposed infiltrates, in particular on the left. <Landy Meade - Last Filed: 10/25/16 19:46> - LABORATORY CBC & Chemistry Diagram: 10/25/16 18:58 10/25/16 18:58 - ADDITIONAL ORDERS Additional order review: Laboratory Results 10/25/16 10/25/16 10/25/16 18:58 18:58 18:58 INR 1.01 Sodium 137 Potassium 4.2 Chloride 104 Carbon Dioxide 26 Anion Gap 7 L BUN 13 Creatinine 0.8 Creat Clearance w eGFR > 60 Random Glucose 82 Calcium 9.6 Magnesium 1.8 Total Bilirubin 0.8 AST 25 ALT 26 D Alkaline Phosphatase 54 Creatine Kinase 73 Total Protein 7.0 Albumin 4.1 10/25/16 18:58 RBC 5.30 MCV 88.6 MCHC 33.8 RDW 12.3 MPV 9.2 Neutrophils % 61.8 Lymphocytes % 23.8 D Monocytes % 11.8 H Eosinophils % 1.6 Basophils % 1.0 <Samantha Garcia - Last Filed: 10/25/16 20:44> Medical Decision Making - Medical Decision Making Case d/w Dr. Lovett via phone. In light of EKG changes, would recommend placement on obs, requested hospitalist for admission. <Samantha Garcia - Last Filed: 10/25/16 20:44> *DC/Admit/Observation/Transfer - Attestations Scribe Attestion: 10/25/16 19:47 Documentation prepared by Landy Meade, acting as chief medical technologist for Samantha Garcia MD. <Landy Meade - Last Filed: 10/25/16 19:46> - Discharge Dispostion Admit: Yes <Samantha Garcia - Last Filed: 10/25/16 20:44> Diagnosis at time of Disposition: Left bundle branch block (LBBB) Chest pain Qualifiers: Chest pain type: unspecified Qualified Code(s): R07.9 - Chest pain, unspecified - Discharge Dispostion Condition at time of disposition: Stable - Referrals
[2016-10-25 19:47] LABS: TROPONIN I (DFP) < 0.03 ng/ml (0.03-0.50)
[2016-10-25] MEDS ORDERED: ASPIRIN 81 MG CHEWABLE TABLETS PO ONE (19:49)
[2016-10-25] MEDS ORDERED: ASPIRIN 81 MG CHEWABLE TABLETS ONE (19:55)
--- NOTE | 2016-10-25 21:28 | HP ---
CHIEF COMPLAINT: Chest Pain PCP: Dr. Alessandro Lovett HISTORY OF PRESENT ILLNESS: This is a 89 y/o male with a past medical history of CAD, CHF, PCI stents x2 ( 2008), HLD, Anxiety, GERD. Who presents to the ED with chest pain x pm. Patient reports the chest pain to be sharp midsternal with radiation to LCW/Axillary. Patient reports taking a Xanax before the pain occurred then 2 additional tabs for the chest pain- which resolved. Patient admits to feeling anxious from time to time, denies at present. Patient denied SOB or diaphoresis with me during the interview, but had endorsed it according to the ED records. Patient denies fever, chills, cough, AP, N/V/D, constipation, dysuria. ER course was notable for: (1) EKG- SR with 1st Degree AV block, LBBB (2) Cardiac Enzyme neg x1 (3) Chest Xray- mild bibasal atelectatic changes, cannot r/o super imposed infiltrates left Recent Travel: None PAST MEDICAL HISTORY: CAD- PCI stents x2 CHF HLD GERD Anxiety PAST SURGICAL HISTORY: Cholescystectomy PCI Stents x2 (2008) Social History: Smoking: Former Alcohol: Occasional Drugs: None Resides with daughter Family History: Non-Contributory Allergies No Known Drug Allergies Allergy (Verified 10/25/16 18:26) DENIES HOME MEDICATIONS: Home Medications Medication Instructions Recorded Atenolol [Tenormin -] 50 mg PO DAILY #0 tablet 08/02/12 Tamsulosin HCl [Flomax -] 0.4 mg PO HS 03/09/14 Olmesartan Medoxomil [Benicar -] 20 mg PO DAILY 09/29/14 Escitalopram Oxalate [Lexapro -] 20 mg PO DAILY 01/20/15 Aspirin [ASA -] 81 mg PO DAILY #30 tab.chew 02/04/15 Clonazepam [KlonoPIN] 0.5 tab PO TID 06/09/16 Dicyclomine HCl [Bentyl] 10 mg PO TID PRN 06/09/16 Simvastatin 40 mg PO DAILY 06/09/16 REVIEW OF SYSTEMS CONSTITUTIONAL: Absent: fever, chills, diaphoresis, generalized weakness, malaise, loss of appetite, weight change HEENT: Absent: rhinorrhea, nasal congestion, throat pain, throat swelling, difficulty swallowing, mouth swelling, ear pain, eye pain, visual changes CARDIOVASCULAR: chest pain Absent: syncope, palpitations, irregular heart rate, lightheadedness, peripheral edema RESPIRATORY: Absent: cough, shortness of breath, dyspnea with exertion, orthopnea, wheezing, stridor, hemoptysis GASTROINTESTINAL: Absent: abdominal pain, abdominal distension, nausea, vomiting, diarrhea, constipation, melena, hematochezia GENITOURINARY: Absent: dysuria, frequency, urgency, hesitancy, hematuria, flank pain, genital pain MUSCULOSKELETAL: Absent: myalgia, arthralgia, joint swelling, back pain, neck pain SKIN: Absent: rash, itching, pallor HEMATOLOGIC/IMMUNOLOGIC: Absent: easy bleeding, easy bruising, lymphadenopathy, frequent infections ENDOCRINE: Absent: unexplained weight gain, unexplained weight loss, heat intolerance, cold intolerance NEUROLOGIC: Absent: headache, focal weakness or paresthesias, dizziness, unsteady gait, seizure, mental status changes, bladder or bowel incontinence PSYCHIATRIC: anxiety Absent: depression, suicidal or homicidal ideation, hallucinations. PHYSICAL EXAMINATION GENERAL: Awake, alert, and fully oriented, in no acute distress. HEAD: Normal with no signs of trauma. EYES: Pupils equal, round and reactive to light, extraocular movements intact, sclera anicteric, conjunctiva clear. No lid lag. EARS, NOSE, THROAT: Ears normal, nares patent, oropharynx clear without exudates. Moist mucous membranes. NECK: Normal range of motion, supple without lymphadenopathy, JVD, or masses. LUNGS: Breath sounds equal, clear to auscultation bilaterally. No wheezes, and no crackles. No accessory muscle use. HEART: Regular rate and rhythm, normal S1 and S2 without murmur, rub or gallop. CP non-reproducible on palpation ABDOMEN: Soft, nontender, not distended, normoactive bowel sounds, no guarding, no rebound, no masses. No hepatomegaly or splenomegaly. MUSCULOSKELETAL: Normal range of motion at all joints. No bony deformities or tenderness. No CVA tenderness. UPPER EXTREMITIES: 2+ pulses, warm, well-perfused. No cyanosis. No clubbing. No peripheral edema. LOWER EXTREMITIES: 2+ pulses, warm, well-perfused. No calf tenderness. No peripheral edema. NEUROLOGICAL: Cranial nerves II-XII intact. Normal speech. Normal gait. PSYCHIATRIC: Cooperative. Good eye contact. Appropriate mood and affect. SKIN: Warm, dry, normal turgor, no rashes or lesions noted, normal capillary refill. Laboratory Results - last 24 hr 10/25/16 10/25/16 10/25/16 18:58 18:58 18:58 WBC 9.6 RBC 5.30 Hgb 15.9 Hct 47.0 MCV 88.6 MCH 30.0 MCHC 33.8 RDW 12.3 Plt Count 255 MPV 9.2 Neutrophils % 61.8 Lymphocytes % 23.8 D Monocytes % 11.8 H Eosinophils % 1.6 Basophils % 1.0 INR 1.01 Sodium 137 Potassium 4.2 Chloride 104 Carbon Dioxide 26 Anion Gap 7 L BUN 13 Creatinine 0.8 Creat Clearance w eGFR > 60 Random Glucose 82 Calcium 9.6 Magnesium 1.8 Total Bilirubin 0.8 AST 25 ALT 26 D Alkaline Phosphatase 54 Creatine Kinase Troponin I Total Protein 7.0 Albumin 4.1 10/25/16 18:58 WBC RBC Hgb Hct MCV MCH MCHC RDW Plt Count MPV Neutrophils % Lymphocytes % Monocytes % Eosinophils % Basophils % INR Sodium Potassium Chloride Carbon Dioxide Anion Gap BUN Creatinine Creat Clearance w eGFR Random Glucose Calcium Magnesium Total Bilirubin AST ALT Alkaline Phosphatase Creatine Kinase 73 Troponin I < 0.03 L Total Protein Albumin ASSESSMENT/PLAN: This is a 89 y/o male with a PMHx of: CAD, CHF, PCI stents x2, HLD, GERD, Anxiety. Placed on Telemetry Observation for Chest Pain r/o ACS, for further evaluation of their emergent condition. Problem List - Problem (1) Chest pain Assessment/Plan: - r/o ACS vs Anxiety - HEART Score 6 - Cardiac monitoring - Given ASA in ED - Serial Enzymes - Appreciate Cardiology Consult- discussed with Dr. Jose becerril - EKG- SR with 1st degree AV block, LBBB new change compared to prior study 2016 - Echo done 06/2016 showed- LVSF normal function, LVEF 55-60%, Grade 1 diastolic dysfunction, mild , mild AR, mild mitral valve thickening, trace TR, mild PVR - Continue ASA, BB, RRB with parameters for BP - Lipid Panel in am - HgbA1c in am Code(s): R07.9 - CHEST PAIN, UNSPECIFIED Qualifiers: Chest pain type: unspecified Qualified Code(s): R07.9 - Chest pain, unspecified (2) New left bundle branch block Assessment/Plan: - Continue cardiac monitoring - EKG reviewed and compared o prior study - Cardiology aware and will follow Code(s): I44.7 - LEFT BUNDLE-BRANCH BLOCK, UNSPECIFIED (3) CAD (coronary artery disease) Assessment/Plan: - s/p PCI stents - Continue cardiac monitoring - Continue home meds Code(s): I25.10 - ATHSCL HEART DISEASE OF [place] CORONARY ARTERY W/O ANG PCTRS Qualifiers: Coronary Disease-Associated Artery/Lesion type: [place] artery [place] vs. transplanted heart: [place] heart Associated angina: without angina Qualified Code(s): I25.10 - Atherosclerotic heart disease of [place] coronary artery without angina pectoris (4) Hyperlipidemia Assessment/Plan: - Lipid profile in am - Continue Statin tonight - Monitor LFTs Code(s): E78.5 - HYPERLIPIDEMIA, UNSPECIFIED Qualifiers: Hyperlipidemia type: pure hypercholesterolemia Qualified Code(s): E78.00 - Pure hypercholesterolemia, unspecified; E78.0 - Pure hypercholesterolemia (5) HTN (hypertension) Code(s): I10 - ESSENTIAL (PRIMARY) HYPERTENSION Qualifiers: Hypertension type: essential hypertension Qualified Code(s): I10 - Essential (primary) hypertension (6) BPH (benign prostatic hyperplasia) Assessment/Plan: - Continue Flomax Code(s): N40.0 - BENIGN PROSTATIC HYPERPLASIA WITHOUT LOWER URINRY TRACT SYMP (7) Anxiety Assessment/Plan: - Code(s): F41.9 - ANXIETY DISORDER, UNSPECIFIED (8) DVT prophylaxis Assessment/Plan: - OOB - SCDs - Consider AC if LOS > 48 hrs Code(s): [id number] - Visit type - Emergency Visit Emergency Visit: Yes ED Registration Date: 10/25/16 Care time: The patient presented to the Emergency Department on the above date and was hospitalized for further evaluation of their emergent condition. - New Patient This patient is new to me today: Yes Date on this admission: 10/25/16 - Critical Care Critical Care patient: No
[2016-10-25] MEDS ORDERED: ATORVASTATIN CA 20 MG TABLET (FP) PO SCH (22:00)
[2016-10-25 23:13] VITALS: BP 129/70; PULSE 62; TEMP 97.4; BMI 28.1
[2016-10-26] MEDS ORDERED: TAMSULOSIN HCL 0.4 MG CAP.ER.24H (FP) PO SCH (08:30)
[2016-10-26 08:40] LABS: BASOPHIL 0.7 % (0-2.0); EOSINOPHIL 1.7 % (0-4.5); MCH 30.1 pg (25.7-33.7); MCHC 33.8 g/dl (32.0-35.9); MEAN CELL VOLUME 89.2 fl (80-96); MEAN PLT VOLUME 9.3 fl (7.5-11.1); NEUTROPHILS 59.1 % (42.8-82.8); PLATELET COUNT 223 K/MM3 (134-434); RDW 12.5 % (11.9-15.9); WHITE BLOOD COUNT 8.9 K/mm3 (4.0-10.8)
[2016-10-26 08:45] LABS: ANION GAP 9 (8-16); CALCIUM 9.4 mg/dl (8.4-10.2); CO2 23 mmol/L (22-28); CPK 54 IU/L (39-308); CREATININE 0.8 mg/dl (0.6-1.3); GLUCOSE,RANDOM 73 mg/dl (74-106); MAGNESIUM 1.9 mg/dL (1.8-2.4)
[2016-10-26 09:02] LABS: CPK 60 IU/L (39-308); TROPONIN I (DFP) < 0.03 ng/ml (0.03-0.50)
--- NOTE | 2016-10-26 09:13 | CON.CARD ---
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 Patient reports taking a Xanax before the pain occurred then 2 additional tabs for the chest pain- which resolved. Patient admits to feeling anxious from time to time, denies at present. Patient denied SOB, near or true syncope, palpitations, orthopnea, PND ot LE edema. ER course was notable for: (1) EKG- SR with 1st Degree AV block, LBBB (2) Cardiac Enzyme neg x1 (3) Chest Xray- mild bibasal atelectatic changes, cannot r/o super imposed infiltrates left Recent Travel: None PAST MEDICAL HISTORY: CAD- PCI stents x2 CHF HLD GERD Anxiety PAST SURGICAL HISTORY: Cholescystectomy PCI Stents x2 (2008) Social History: Smoking: Former Alcohol: Occasional Drugs: None Resides with daughter Family History: Non-Contributory Allergies No Known Drug Allergies Allergy (Verified 10/25/16 18:26) - History Source History Provided By: Patient Limitations to Obtaining History: No Limitations - Past Medical History Cardio/Vascular: Yes: CAD (history of 2 prior stents), HTN, Hyperlipdemia Gastrointestinal: Yes: GERD, Other (CHRONIC ABDOMINAL PAIN) Renal/: Yes: BPH Psych: Yes: Anxiety, Depression - Past Surgical History Past Surgical History: Yes: Cholecystectomy, Stent - Alcohol/Substance Use Hx Alcohol Use: Yes (occasional) - Smoking History Smoking history: Former smoker Have you smoked in the past 12 months: No Aproximately how many cigarettes per day: 20 If you are a former smoker, when did you quit?: 1978 Home Medications - Allergies Allergies/Adverse Reactions: Allergies Allergy/AdvReac Type Severity Reaction Status Date / Time No Known Drug Allergies Allergy Verified 10/25/16 18:26 - Home Medications Home Medications: Ambulatory Orders Atenolol [Tenormin -] 50 mg PO DAILY #0 tablet 05/30/13 Tamsulosin HCl [Flomax -] 0.4 mg PO HS 03/09/14 Olmesartan Medoxomil [Benicar -] 20 mg PO DAILY 09/29/14 Escitalopram Oxalate [Lexapro -] 20 mg PO DAILY 01/20/15 Aspirin [ASA -] 81 mg PO DAILY #30 tab.chew 02/04/15 Clonazepam [KlonoPIN] 0.5 tab PO TID 06/09/16 Dicyclomine HCl [Bentyl] 10 mg PO TID PRN 06/09/16 Simvastatin 40 mg PO DAILY 06/09/16 Review of Systems - Review of Systems Cardiovascular: reports: Chest Pain Vital Signs: Vital Signs Temperature 97.4 F L 10/25/16 21:30 Pulse Rate 62 10/25/16 21:30 Respiratory Rate 18 10/26/16 08:06 Blood Pressure 129/70 10/25/16 21:30 O2 Sat by Pulse Oximetry (%) 96 10/26/16 08:06 Constitutional: Yes: No Distress, Calm Neck: Yes: Supple Respiratory: Yes: Regular, CTA Bilaterally Gastrointestinal: Yes: Normal Bowel Sounds, Soft, Abdomen, Obese Cardiovascular: Yes: Regular Rate and Rhythm JVD: No Carotid Bruit: No Heart Sounds: Yes: S1, S2 Edema: No - Other Data Labs, Other Data: CBC, BMP 10/26/16 07:00 10/26/16 07:00 INR, PTT INR 1.01 (0.82-1.09) 10/25/16 18:58 Troponin, BNP 10/26/16 00:40 Troponin I < 0.03 L Troponin, BNP 10/26/16 00:40 Troponin I < 0.03 L NSR @ 65 1st deg AVB LBBB Imaging - Results Chest X-ray: Report Reviewed (Mild bibasilar ATX) Problem List - Problems (1) Chest pain Code(s): R07.9 - CHEST PAIN, UNSPECIFIED Qualifiers: Chest pain type: other chest pain Qualified Code(s): R07.89 - Other chest pain; R07.8 - Other chest pain (2) Left bundle branch block (LBBB) Code(s): I44.7 - LEFT BUNDLE-BRANCH BLOCK, UNSPECIFIED (3) Anxiety Code(s): F41.9 - ANXIETY DISORDER, UNSPECIFIED (4) Hyperlipidemia Code(s): E78.5 - HYPERLIPIDEMIA, UNSPECIFIED Qualifiers: Hyperlipidemia type: pure hypercholesterolemia Qualified Code(s): E78.00 - Pure hypercholesterolemia, unspecified; E78.0 - Pure hypercholesterolemia (5) Status post insertion of drug eluting coronary artery stent Code(s): Z95.5 - PRESENCE OF CORONARY ANGIOPLASTY IMPLANT AND GRAFT (6) CAD (coronary artery disease) Code(s): I25.10 - ATHSCL HEART DISEASE OF [place] CORONARY ARTERY W/O ANG PCTRS Qualifiers: Coronary Disease-Associated Artery/Lesion type: [place] artery [place] vs. transplanted heart: [place] heart Associated angina: without angina Qualified Code(s): I25.10 - Atherosclerotic heart disease of [place] coronary artery without angina pectoris (7) HTN (hypertension) Code(s): I10 - ESSENTIAL (PRIMARY) HYPERTENSION Qualifiers: Hypertension type: essential hypertension Qualified Code(s): I10 - Essential (primary) hypertension Assessment/Plan 06/09/2016 Normal LV and RV size and fxn, mild AR, PA, abnl LV compliance 12/17/2014 Small zone of mild inferior ischemia, LVEF 68% 1. Atypical chest pain syndrome, ruled out for SD 2. CAD s/p PCI(stent), angina pectoris 3. Diastolic dysfunction 4. HTN/HCVD 5. Hyperlipidemia 6. GERD, irritable bowel sydrome with recurrent abd discomfort 7. Anxiety d/o 8. Intermittent LBBB 9. Mild carotid atherosclerosis P:1. Ruled out for SD 2. Continue Atenolol 50 qd, Benicar 20 qd, ASA 81 qd, Zocor 40 qhs 3. May d/c with f/u with Dr. Plascencia in office 11/09 9:40 AM, further cardiovascular testing may be performed as outpatient 4. Thank you for consultative opportunity
[2016-10-26] MEDS ORDERED: ATENOLOL 50 MG TABLET (FP) PO SCH (10:00)
[2016-10-26] MEDS ORDERED: ASPIRIN 81 MG CHEWABLE TABLETS PO SCH (10:00)
[2016-10-26] MEDS ORDERED: VALSARTAN 160 MG TABLET (UD) PO SCH (10:00)
--- NOTE | 2016-10-26 10:01 | DS ---
Physical Exam: SUBJECTIVE: Patient seen and examined. Denies chest pain, SOB, nausea/vomiting, abdominal pain, any other symptoms. OBJECTIVE: Vital Signs Period Temp Pulse Resp BP Sys/[place] Pulse Ox Last 24 Hr 97.4 F 62 18-18 129/70 96-96 PHYSICAL EXAM GENERAL: The patient is awake, alert, and fully oriented, in no acute distress. HEAD: Normal with no signs of trauma. EYES: PERRL, extraocular movements intact, sclera anicteric, conjunctiva clear. ENT: Ears normal, nares patent, oropharynx clear without exudates, moist mucous membranes. NECK: Trachea midline, full range of motion, supple. LUNGS: Breath sounds equal, clear to auscultation bilaterally, no wheezes, no crackles, no accessory muscle use. HEART: Regular rate and rhythm, S1, S2 without murmur, rub or gallop. ABDOMEN: Soft, nontender, nondistended, normoactive bowel sounds, no guarding, no rebound, no hepatosplenomegaly, no masses. EXTREMITIES: 2+ pulses, warm, well-perfused, no edema. NEUROLOGICAL: Cranial nerves II through XII grossly intact. Normal speech, gait not observed. PSYCH: Normal mood, normal affect. SKIN: Warm, dry, normal turgor, no rashes or lesions noted. LABS Laboratory Results - last 24 hr 10/26/16 10/26/16 10/26/16 00:40 07:00 07:00 WBC 8.9 RBC 5.25 Hgb 15.8 Hct 46.8 MCV 89.2 MCH 30.1 MCHC 33.8 RDW 12.5 Plt Count 223 MPV 9.3 Neutrophils % 59.1 Lymphocytes % 27.6 Monocytes % 10.9 H Eosinophils % 1.7 Basophils % 0.7 Sodium 137 Potassium 4.1 Chloride 105 Carbon Dioxide 23 Anion Gap 9 BUN 14 Creatinine 0.8 Random Glucose 73 L Calcium 9.4 Phosphorus 3.0 Magnesium 1.9 Creatine Kinase 60 Troponin I < 0.03 L 10/26/16 07:00 WBC RBC Hgb Hct MCV MCH MCHC RDW Plt Count MPV Neutrophils % Lymphocytes % Monocytes % Eosinophils % Basophils % Sodium Potassium Chloride Carbon Dioxide Anion Gap BUN Creatinine Random Glucose Calcium Phosphorus Magnesium Creatine Kinase 54 Troponin I HOSPITAL COURSE: This is an 89 year old male with a history of CAD s/p stent, diastolic CHF, HTN , HLD, GERD, IBS, anxiety on Xanax and Lexapro who presented to the ED last night complaining of chest pain and anxiety not initially relieved by taking Xanax. Hospital course: (1) EKG EKG 18:40- Sinus rhythm, 1st deg AV block, ventricular rate 65 bpm, LBBB (2) CXR: Bibasilar atelectatic changes (3) TNI neg x 3 (4) No events on telemetry Prior testing obtained from office records: 06/09/2016 Normal LV and RV size and fxn, mild AR, [place], abnl LV compliance 12/17/2014 Small zone of mild inferior ischemia, LVEF 68% Intermittent LBBB Today, his symptoms are resolved and he denies all complaints. Plan: -Continue Atenolol 50 qd, Benicar 20 qd, ASA 81 qd, Zocor 40 qhs -F/u with Dr. 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 next week -Return here for recurrent chest pain, shortness of breath, or any other concerning symptoms Referrals: Alessandro Lovett MD [Primary Care Provider] - 1 Week Chayo Plascencia MD [Staff Physician] - 11/09/16 Disposition: HOME - Home Medications Comprehensive Discharge Medication List: Ambulatory Orders Atenolol [Tenormin -] 50 mg PO DAILY #0 tablet 08/02/12 Tamsulosin HCl [Flomax -] 0.4 mg PO HS 03/09/14 Olmesartan Medoxomil [Benicar -] 20 mg PO DAILY 09/29/14 Escitalopram Oxalate [Lexapro -] 20 mg PO DAILY 01/20/15 Aspirin [ASA -] 81 mg PO DAILY #30 tab.chew 02/04/15 Clonazepam [KlonoPIN] 0.5 tab PO TID 06/09/16 Dicyclomine HCl [Bentyl] 10 mg PO TID PRN 06/09/16 Simvastatin 40 mg PO DAILY 06/09/16 Aspirin [ASA -] 81 mg PO DAILY tab.chew 10/26/16 This patient is new to me today: Yes Date on this admission: 10/26/16 Emergency Visit: Yes ED Registration Date: 10/25/16 Care time: The patient presented to the Emergency Department on the above date and was hospitalized for further evaluation of their emergent condition. Critical Care patient: No
[2016-10-26 11:07] LABS: TROPONIN I (DFP) < 0.03 ng/ml (0.03-0.50)
[2016-10-26 11:24] LABS: CHOLESTEROL 117 mg/dl
--- NOTE | 2016-10-26 18:22 | EKG ---
Test Reason : Blood Pressure : / mmHG Vent. Rate : 065 BPM Atrial Rate : 065 BPM P-R Int : 222 ms QRS Dur : 148 ms QT Int : 448 ms P-R-T Axes : 014 -38 057 degrees QTc Int : 465 ms SINUS RHYTHM WITH 1ST DEGREE A-V BLOCK LEFT AXIS DEVIATION LEFT BUNDLE BRANCH BLOCK WHEN COMPARED WITH ECG OF 09-JUN-2016 09:30, LEFT BUNDLE BRANCH BLOCK IS NOW PRESENT Confirmed by MD ABY, JENNIFER ([id number]) on 10/26/2016 6:22:22 PM Referred By: DR PALAFOX Confirmed By:JENNIFER BADILLO MD
[2016-10-27 00:16] LABS: CPK 60 IU/L (39-308); TROPONIN I < 0.02 ng/ml (0.00-0.05)
== END 2016-10-26 10:40 | disposition home or self-care (01) ==
LOC: FER 18:24 → FM/S 20:39
PROVIDERS: ADMIT Internal Medicine; ATTEND Registered Nurse Emergency
DX: R07.89 Other chest pain (principal); I44.7 Left bundle-branch block, unspecified; I25.10 Atherosclerotic heart disease of native coronary artery without angina pectoris; I50.9 Heart failure, unspecified; I10 Essential (primary) hypertension; E78.5 Hyperlipidemia, unspecified; N40.0 Benign prostatic hyperplasia without lower urinary tract symptoms; F41.9 Anxiety disorder, unspecified; K21.9 Gastro-esophageal reflux disease without esophagitis; Z95.5 Presence of coronary angioplasty implant and graft; Z90.49 Acquired absence of other specified parts of digestive tract; Z87.891 Personal history of nicotine dependence; Z79.82 Long term (current) use of aspirin
CPT/HCPCS: 36415; 71020-TC; 80048; 80053; 80061; 83036; 83735; 84100; 84484; 85025; 85610; 93005; 99285-25; G0378

== ENCOUNTER 2016-12-08 12:54 | Emergency (ER) | payer OTHER, BC ==
[2016-12-08 13:31] VITALS: TEMP 98.3; BMI 29.0
--- NOTE | 2016-12-08 14:53 | PDOC ---
History of Present Illness - General History Source: Patient Exam Limitations: No Limitations - History of Present Illness Initial Comments: 12/08/16 15:00 The patient is a 89 year old male, with a significant past medical history of, CAD, CHF, PCI stents x2 (2008), HLD, Anxiety, GERD who presents to the emergency department with, left sided rib pain that began 2 weeks ago. Patient reports left sided rib pain began suddenly 2 weeks ago with no sign of relief. He reports pain is intermittent, stating, it comes every other day. Patient states he has not taken any medication for the pain since its initial development. He denies pain intensity with inspiration, and exertion. He denies chest pain, shortness of breath, headache and dizziness. He denies fever, chills, nausea, vomit, diarrhea and constipation. He denies dysuria, frequency, urgency and hematuria. PMH:CAD- PCI stents x2, CHF, HLD, GERD, Anxiety Allergies: None Past surgical history: Cholecystectomy, PCI Stents x2 (2008). Social history: Lives with ,Former smoker (1978). No tobacco. Social drinker. . PCP: Dr. Lovett <Antolin Cancino - Last Filed: 12/08/16 14:59> <Clive Leroy - Last Filed: 12/08/16 18:42> - General Chief Complaint: Chronic pain Stated Complaint: L SIDE RIBS PAIN Time Seen by Provider: 12/08/16 12:57 Past History <Antolin Cancino - Last Filed: 12/08/16 14:59> - Past Medical History Anemia: No Asthma: No Cancer: No Cardiac Disorders: Yes (STENTX2 2008) CVA: No COPD: No CHF: No Dementia: No Diabetes: No Dialysis: No GI Disorders: Yes (GERD) Disorders: No HTN: Yes Hypercholesterolemia: Yes Liver Disease: No Psychiatric Problems: Yes (ANXIETY) Seizures: No Thyroid Disease: No Lung CA: Yes (CHRONIC ANXIETY) - Surgical History Abdominal Surgery: No Appendectomy: No Cardiac Surgery: Yes (STENT X2 2008) Cholecystectomy: Yes Lung Surgery: No Neurologic Surgery: No Orthopedic Surgery: No - Suicide/Smoking/Psychosocial Hx Smoking Status: No Smoking History: Former smoker Have you smoked in the past 12 months: No Number of Cigarettes Smoked Daily: 20 If you are a former smoker, when did you quit?: 1978 Information on smoking cessation initiated: No Hx Alcohol Use: No Drug/Substance Use Hx: No Substance Use Type: None Hx Substance Use Treatment: No <Clive Leroy - Last Filed: 12/08/16 18:42> - Past Medical History Allergies/Adverse Reactions: Allergies Allergy/AdvReac Type Severity Reaction Status Date / Time No Known Drug Allergies Allergy Verified 12/08/16 13:15 Home Medications: Ambulatory Orders Atenolol [Tenormin -] 50 mg PO DAILY #0 tablet 08/02/12 Tamsulosin HCl [Flomax -] 0.4 mg PO HS 03/09/14 Olmesartan Medoxomil [Benicar -] 20 mg PO DAILY 09/29/14 Escitalopram Oxalate [Lexapro -] 20 mg PO DAILY 01/20/15 Clonazepam [KlonoPIN] 0.5 tab PO TID 06/09/16 Dicyclomine HCl [Bentyl] 10 mg PO TID PRN 06/09/16 Simvastatin 40 mg PO DAILY 06/09/16 Aspirin [ASA -] 81 mg PO DAILY tab.chew 10/26/16 Review of Systems - Review of Systems Able to Perform ROS?: Yes Comments:: 12/08/16 15:00 CONSTITUTIONAL: Absent: Fever, Chills, Diaphoresis, Generalized Weakness, Malaise, Loss of Appetite HEENT: Absent: Rhinorrhea, Nasal Congestion, Throat Pain, Throat Swelling, Difficulty Swallowing, Mouth Swelling, Ear Pain, Eye Pain, Visual Changes CARDIOVASCULAR: Absent: Chest Pain, Syncope, Palpitations, Irregular Heart Rate, Lightheadedness , Peripheral Edema RESPIRATORY: Absent: Cough, Shortness of Breath, SOB with Exertion, Orthopnea, Wheezing, Stridor, Hemoptysis GASTROINTESTINAL: Absent: Abdominal pain, Abdominal Distension, Nausea, Vomiting, Diarrhea, Constipation, Melena, Hematochezia GENITOURINARY: Absent: Dysuria, Frequency, Urgency, Hesitancy, Flank Pain, Genital Pain MUSCULOSKELETAL: +Left sided rib pain. Absent: Myalgia, Arthralgia, Joint Swelling, Back pain, Neck Pain SKIN: Absent: Rash, Itching, PalloR HEMATOLOGIC/IMMUNOLOGIC: Absent: Easy Bleeding, Easy Bruising, Lymphadenopathy, Frequent infections ENDOCRINE: Absent: Unexplained Weight Gain, Unexplained Weight Loss, Heat Intolerance, Cold Intolerance NEUROLOGIC: Absent: Headache, Focal Weakness, Paresthesias, Vertigo, Lightheadedness, Unsteady Gait, Seizure, Mental Status Changes, Incontinence PSYCHIATRIC: Absent: Anxiety, Depression All Other Systems: Reviewed and Negative <Julita,Antolin - Last Filed: 12/08/16 14:59> *Physical Exam - Vital Signs Last Vital Signs Temp Pulse Resp BP Pulse Ox 98.3 F 65 16 153/95 95 12/08/16 13:20 12/08/16 13:20 12/08/16 13:20 12/08/16 13:20 12/08/16 13:20 - Physical Exam Comments: 12/08/16 15:00 GENERAL: The patient is awake, alert, and fully oriented, in no acute distress. HEAD: Normal with no signs of trauma. EYES: Pupils equal, round and reactive to light, extraocular movements intact, sclera anicteric, conjunctiva clear. ENT: Ears normal, nares patent, oropharynx clear without exudates. Moist mucous membranes. NECK: Normal range of motion, supple without lymphadenopathy, JVD, or masses. LUNGS: Breath sounds equal, clear to auscultation bilaterally. No wheezes, and no crackles. HEART: Regular rate and rhythm, normal S1 and S2 without murmur, rub or gallop. MUSCULOSKELETAL: No Rib tenderness to palpation. No tenderness to Rib Squeeze. ABDOMEN: Soft, nontender, normoactive bowel sounds. No guarding, no rebound. No masses. EXTREMITIES: Normal range of motion, no edema. No clubbing or cyanosis. No cords , erythema, or tenderness. NEUROLOGICAL: Cranial nerves II through XII grossly intact. Normal speech, normal gait. PSYCH: Normal mood, normal affect. SKIN: Warm, Dry, normal turgor, no rashes or lesions noted <Antolin Cancino - Last Filed: 12/08/16 14:59> - Vital Signs Last Vital Signs Temp Pulse Resp BP Pulse Ox 98.3 F 65 16 153/95 95 12/08/16 13:20 12/08/16 13:20 12/08/16 13:20 12/08/16 13:20 12/08/16 13:20 <Clive Leroy - Last Filed: 12/08/16 18:42> Heart Score/ECG Review - ECG Intrepretation Comment:: 12/08/16 15:03 Twelve-lead EKG was performed and reviewed by me. There is [normal sinus rhythm with first degree AV block and left bundle branch block] at a rate of [61] beats per minute. The axis is [left]. Impression: Normal sinus rhythm with left bundle branch block which is unchanged from october 25, 2016. <JulitaAntolin - Last Filed: 12/08/16 14:59> ED Treatment Course - LABORATORY CBC & Chemistry Diagram: 12/08/16 15:00 12/08/16 15:00 - RADIOLOGY Radiology Studies Ordered: Category Date Time Status CHEST PA & LAT [RAD] Stat Radiology 12/08/16 14:42 Ordered <Clive Leroy - Last Filed: 12/08/16 18:42> Medical Decision Making - Medical Decision Making 12/08/16 18:38 Patient is an 89-year-old man with a history of frequent abdominal and chest pain. He also has a history of coronary artery disease. He presents today complaining of point pain on the left lateral lower rib. He states the pain is the size of the finger tip. There is no nausea or vomiting. There is no shortness of breath. There is no fever or cough. On examination, the patient appears well. His lungs are clear. His heart is regular rhythm without gallop or murmur. His abdomen is soft and nontender. There is no tenderness to palpation in the ribs or any other area. Extremities are normal. Twelve-lead EKG shows left bundle branch block, normal sinus rhythm. The old EKG shows left bundle branch block as well. There are no acute ischemic criteria on the EKG. The history is highly atypical for acute coronary syndrome. However, given patient's age and history of heart disease, he will be observed in the ED and have serial troponins. He was given Tylenol with relief of pain. His first troponin is negative. Repeat troponin will be performed at 7 PM prior to discharge. CBC is unremarkable. Chemistry is unremarkable. Creatine kinase is normal. Laboratory Results - last 24 hr 12/08/16 12/08/16 12/08/16 15:00 15:00 15:00 WBC 9.7 RBC 5.32 Hgb 15.9 Hct 48.1 MCV 90.4 MCH 29.8 MCHC 33.0 RDW 12.8 Plt Count 230 MPV 9.7 Neutrophils % 63.2 Lymphocytes % 25.4 Monocytes % 9.9 Eosinophils % 1.4 Basophils % 0.1 Sodium 140 Potassium 4.3 Chloride 105 Carbon Dioxide 21 Anion Gap 14 BUN 11 Creatinine 1.0 D Creat Clearance w eGFR > 60 Random Glucose 78 Calcium 9.2 Total Bilirubin 0.4 D AST 19 ALT 27 Alkaline Phosphatase 72 D Creatine Kinase 69 Troponin I < 0.03 L < 0.03 L Total Protein 7.2 Albumin 4.0 12/08/16 18:42 The scribe's documentation has been prepared under my direction and personally reviewed by me in its entirety. I have confirmed that the note above accurately reflects all work, treatment, procedures, and medical decision- making performed by me. <Clive Leroy - Last Filed: 12/08/16 18:42> *DC/Admit/Observation/Transfer - Attestations Scribe Attestion: 12/08/16 15:06 Documentation prepared by Antolin Cancino, acting as medical records administrator for Clive Leroy MD/DO. <Antolin Cancino - Last Filed: 12/08/16 14:59> <Clive Leroy - Last Filed: 12/08/16 18:42> Diagnosis at time of Disposition: Atypical chest pain - Referrals Referrals: Alessandro Lovett MD [Primary Care Provider] -
[2016-12-08 15:24] LABS: BASOPHIL 0.1 % (0-2.0); EOSINOPHIL 1.4 % (0-4.5); MCH 29.8 pg (25.7-33.7); MEAN CELL VOLUME 90.4 fl (80-96); MEAN PLT VOLUME 9.7 fl (7.5-11.1); NEUTROPHILS 63.2 % (42.8-82.8); PLATELET COUNT 230 K/MM3 (134-434); RDW 12.8 % (11.9-15.9); WHITE BLOOD COUNT 9.7 K/mm3 (4.0-10.8)
[2016-12-08 17:11] LABS: ALK PHOS 72 U/L (45-117); ANION GAP 14 (8-16); BILIRUBIN,TOTAL 0.4 mg/dL (0.2-1.0); CALCIUM 9.2 mg/dL (8.5-10.1); CO2 21 mmol/L (21-32); CPK 69 IU/L (39-308); GLUCOSE,RANDOM 78 mg/dL (74-106); SGOT/AST 19 U/L (15-37); SGPT/ALT 27 U/L (12-78); TOT PROT 7.2 g/dl (6.4-8.2)
[2016-12-08 18:15] LABS: TROPONIN I (DFP) < 0.03 ng/ml (0.03-0.50)
[2016-12-08 18:57] VITALS: BP 149/86; PULSE 66
--- NOTE | 2016-12-08 19:43 | PDOC ---
*Physical Exam - Vital Signs Last Vital Signs Temp Pulse Resp BP Pulse Ox 98.3 F 66 16 149/86 96 12/08/16 13:20 12/08/16 18:30 12/08/16 18:30 12/08/16 18:30 12/08/16 18:30 ED Treatment Course - LABORATORY CBC & Chemistry Diagram: 12/08/16 15:00 12/08/16 15:00 - ADDITIONAL ORDERS Additional order review: Laboratory Results 12/08/16 12/08/16 12/08/16 18:50 15:00 15:00 Sodium 140 Potassium 4.3 Chloride 105 Carbon Dioxide 21 Anion Gap 14 BUN 11 Creatinine 1.0 D Creat Clearance w eGFR > 60 Random Glucose 78 Calcium 9.2 Total Bilirubin 0.4 D AST 19 ALT 27 Alkaline Phosphatase 72 D Creatine Kinase 69 Troponin I < 0.03 L < 0.03 L < 0.03 L Total Protein 7.2 Albumin 4.0 12/08/16 15:00 RBC 5.32 MCV 90.4 MCHC 33.0 RDW 12.8 MPV 9.7 Neutrophils % 63.2 Lymphocytes % 25.4 Monocytes % 9.9 Eosinophils % 1.4 Basophils % 0.1 Medical Decision Making - Medical Decision Making 12/08/16 19:41 Pt signed out to me as atypical chest pain pending repeat troponin. Second set of cardiac enzymes is negative. Will discharge patient home. *DC/Admit/Observation/Transfer Diagnosis at time of Disposition: Atypical chest pain - Discharge Dispostion Disposition: HOME Condition at time of disposition: Good - Referrals Referrals: Alessandro Lovett MD [Primary Care Provider] - - Patient Instructions Printed Discharge Instructions: DI for Chest Pain Additional Instructions: return to the ED for new or changing symptoms, especially severe chest pain or shortness of breath. Follow up with your doctor. - Post Discharge Activity
--- NOTE | 2016-12-09 16:42 | EKG ---
Test Reason : Blood Pressure : / mmHG Vent. Rate : 061 BPM Atrial Rate : 061 BPM P-R Int : 238 ms QRS Dur : 144 ms QT Int : 464 ms P-R-T Axes : 023 -36 069 degrees QTc Int : 467 ms SINUS RHYTHM WITH 1ST DEGREE A-V BLOCK LEFT AXIS DEVIATION LEFT BUNDLE BRANCH BLOCK WHEN COMPARED WITH ECG OF 25-OCT-2016 18:40, NO SIGNIFICANT CHANGE WAS FOUND Confirmed by MD ABY, JENNIFER ([id number]) on 12/09/2016 4:42:19 PM Referred By: Sharda ABURTO Confirmed By:JENNIFER BADILLO MD
== END 2016-12-08 19:53 | disposition home or self-care (01) ==
LOC: FER 12:54 → SUPCPDRO 12:54 → FER 19:53
DX: R07.89 Other chest pain (principal); Z95.5 Presence of coronary angioplasty implant and graft; K21.9 Gastro-esophageal reflux disease without esophagitis; F41.9 Anxiety disorder, unspecified; I10 Essential (primary) hypertension
CPT/HCPCS: 36415; 71020-TC; 80053; 84484; 85025; 93005; 99285-25

== ENCOUNTER 2016-12-30 22:09 | Observation (INO) | payer OTHER, BC ==
--- NOTE | 2016-12-30 22:20 | PDOC ---
History of Present Illness - General Chief Complaint: Pain Stated Complaint: ABDOMINAL PAIN Time Seen by Provider: 12/30/16 22:16 History Source: Patient Exam Limitations: No Limitations - History of Present Illness Initial Comments: 12/30/16 22:18 This is an 89-year-old male who is a relatively poor historian. Patient cannot remember the answer to a number of the questions that I asked him. Patient however does state that he did develop upper abdominal pain this morning and has had it all day. Patient cannot recall what he had for breakfast and if it was fatty. Patient denies any radiation to his chest. He denied any shortness of breath, nausea, diaphoresis. Patient says he took 3 antacids for the pain without relief. Patient does have a past history of gastritis. He denies any fevers or chills. He denies any vomiting or diarrhea. He said he did move his bowels today and they were normal. He denies any history of abdominal surgeries. PAST MEDICAL HISTORY: As per history of present illness PAST SURGICAL HISTORY: no significant history FAMILY HISTORY: no pertinant history SOCIAL HISTORY: Pt lives with family and is employed. MEDICATIONS: reviewed ALLERGIES: As per nursing notes Review of Systems General: No fevers or chills, no weakness, no weight loss HEENT: No change in vision. No sore throat,. No ear pain CardioVascular: No chest pain or shortness of breath Respiratory:No cough, or wheezing. Gastrointestinal: + nausea, vomitting, diarrhea or constipation, No rectal bleeding, abdominal pain as per history of present illness Genitourinary: No dysuria, hematuria, or frequency Musculoskeletal: No joint or muscle pain or swelling Neurologic: No headache, vertigo, dizziness or loss of consciousness Psychiatric: nor depression Skin: No rashes or easy bruising Endocrine: no increased thirst or abnormal weight change Allergic: no skin or latex allergy All other systems reviewed and normal Exam: General: Well-nourished well-developed individual, no acute distress HEENT: Throat: Normal, tonsils normal, no erythema or exudate Neck: Supple, no meningeal signs, no lymphadenopathy Eyes::Pupils equal reactive and round, extraocular motion intact Chest: Nontender to palpation Cardiac: S1-S2 normal, regular rate and rhythm, no murmurs rubs or gallops Respiratory: Lungs clear to auscultation bilateral Abdomen: Soft, nondistended, , mild to moderately tender on palpation right upper quadrant no guarding or rebound. Bowel sounds are slightly increased. Extremities: Warm, dry, no cyanosis, clubbing, or edema Skin: No rashes Neuro: Alert and oriented x3, nonfocal exam, grossly intact, normal gait Psych: Normal mood and affect Ultrasound shows no acute pathology patient status post gallbladder removal CT scan shows a 4.5 cm fluid and air-filled diverticulum noted off the second portion of the duodenum it is of questionable significance. 12/31/16 02:15 reevaluation: pt still has moderate amount of tenderness on palpation of the periumbilical area of his abdomen. Assessment and plan: This is a 89-year-old male who comes in complaining of abdominal pain. Patient does have a mildly elevated white count but no left shift and is afebrile. Patient's CAT scan shows a diverticulum that is enlarged and fluid-filled but no inflammatory changes. This is a possible source of the patient's pain. Given the patient's age of 89, his mildly elevated white count and his persistent tenderness in that area patient started on Levaquin and Flagyl and will be admitted to an obstetric bed overnight for reevaluation of his blood work and reassessment of his clinical condition in the morning. Past History - Past Medical History Allergies/Adverse Reactions: Allergies Allergy/AdvReac Type Severity Reaction Status Date / Time No Known Drug Allergies Allergy Verified 12/30/16 22:10 Home Medications: Ambulatory Orders Atenolol [Tenormin -] 50 mg PO DAILY #0 tablet 08/02/12 Olmesartan Medoxomil [Benicar -] 20 mg PO DAILY 09/29/14 Escitalopram Oxalate [Lexapro -] 20 mg PO DAILY 01/20/15 Simvastatin 40 mg PO DAILY 06/09/16 Anemia: No Asthma: No Cancer: No Cardiac Disorders: Yes (STENTX2 2008) CVA: No COPD: No CHF: No Dementia: No Diabetes: No Dialysis: No GI Disorders: Yes (GERD) Disorders: No HTN: Yes Hypercholesterolemia: Yes Liver Disease: No Psychiatric Problems: Yes (ANXIETY) Seizures: No Thyroid Disease: No Lung CA: Yes (CHRONIC ANXIETY) - Surgical History Abdominal Surgery: No Appendectomy: No Cardiac Surgery: Yes (STENT X2 2008) Cholecystectomy: Yes Lung Surgery: No Neurologic Surgery: No Orthopedic Surgery: No - Suicide/Smoking/Psychosocial Hx Smoking Status: No Smoking History: Former smoker Have you smoked in the past 12 months: No Number of Cigarettes Smoked Daily: 20 If you are a former smoker, when did you quit?: 1974 Information on smoking cessation initiated: No Hx Alcohol Use: No Drug/Substance Use Hx: No Substance Use Type: None Hx Substance Use Treatment: No Abd/GI Specific PMHX - Complaint Specific PMHX GERD: Yes *Physical Exam - Vital Signs Last Vital Signs Temp Pulse Resp BP Pulse Ox 97.7 F 83 20 158/101 98 12/30/16 22:12 12/30/16 22:12 12/30/16 22:12 12/30/16 22:12 12/30/16 22:12 ED Treatment Course - LABORATORY CBC & Chemistry Diagram: 12/30/16 22:50 12/30/16 22:50 *DC/Admit/Observation/Transfer Diagnosis at time of Disposition: Diverticulitis of intestine Qualifiers: Diverticulitis site: unspecified part of intestinal tract Diverticulitis bleeding: without bleeding Diverticulitis complication: without perforation or abscess Qualified Code(s): K57.92 - Diverticulitis of intestine, part unspecified, without perforation or abscess without bleeding; K57.92 - Diverticulitis of intestine, part unspecified, without perforation or abscess without bleeding - Discharge Dispostion Condition at time of disposition: Stable Admit: Yes
[2016-12-30] MEDS ORDERED: SODIUM CHLORIDE 1,000 ML IV ONE (22:27)
[2016-12-30] MEDS ORDERED: KETOROLAC TROMETHAMINE 30 MG/1 ML VIAL IVPUSH ONE (22:28)
[2016-12-30] MEDS ORDERED: KETOROLAC TROMETHAMINE 30 MG/1 ML VIAL ONE (22:58)
[2016-12-30 23:07] LABS: BASOPHIL 0.9 % (0-2.0); EOSINOPHIL 1.1 % (0-4.5); MCH 29.9 pg (25.7-33.7); MCHC 33.6 g/dl (32.0-35.9); MEAN CELL VOLUME 89.1 fl (80-96); MEAN PLT VOLUME 9.1 fl (7.5-11.1); NEUTROPHILS 69.1 % (42.8-82.8); PLATELET COUNT 238 K/MM3 (134-434); RDW 12.4 % (11.9-15.9); WHITE BLOOD COUNT 11.5 K/mm3 (4.0-10.8)
[2016-12-30 23:21] LABS: CPK 69 IU/L (39-308)
[2016-12-30 23:22] LABS: ALBUMIN 4.1 g/dl (3.5-5.0); ALK PHOS 51 U/L (32-92); ANION GAP 10 (8-16); BILIRUBIN,TOTAL 0.6 mg/dl (0.2-1.0); CALCIUM 9.4 mg/dl (8.4-10.2); CO2 23 mmol/L (22-28); GLUCOSE,RANDOM 101 mg/dl (74-106); SGOT/AST 26 U/L (10-42); SGPT/ALT 19 U/L (10-40); TOT PROT 7.3 g/dl (6.4-8.3)
[2016-12-30 23:38] LABS: TROPONIN I (DFP) < 0.03 ng/ml (0.03-0.50)
[2016-12-31] MEDS ORDERED: LEVOFLOXACIN 500 MG IVPB 100 ML IVPB ONE ×2 (02:25→02:31)
[2016-12-31] MEDS ORDERED: METRONIDAZOLE 500 MG PREMIXED 100 ML IVPB ONE ×2 (02:25→02:30)
[2016-12-31] MEDS ORDERED: FAMOTIDINE 20 MG/50 ML IVPB 50 ML IVPB ONE ×2 (02:46→03:12)
[2016-12-31] MEDS ORDERED: morphine CARPU-JECT 2 MG/1 ML DISP.SYRIN IVPUSH ONE (02:46)
[2016-12-31] MEDS ORDERED: morphine CARPU-JECT 2 MG/1 ML DISP.SYRIN ONE (03:12)
[2016-12-31 04:42] VITALS: BMI 31.5
[2016-12-31 07:37] LABS: MCH 29.6 pg (25.7-33.7); MCHC 32.9 g/dl (32.0-35.9); MEAN CELL VOLUME 89.9 fl (80-96); MEAN PLT VOLUME 9.2 fl (7.5-11.1); PLATELET COUNT 200 K/MM3 (134-434); RDW 12.6 % (11.9-15.9); WHITE BLOOD COUNT 10.4 K/mm3 (4.0-10.8)
[2016-12-31 08:07] LABS: ALBUMIN 3.4 g/dl (3.5-5.0); ALK PHOS 42 U/L (32-92); ANION GAP 5 (8-16); BILIRUBIN,TOTAL 0.8 mg/dl (0.2-1.0); CALCIUM 8.7 mg/dl (8.4-10.2); CO2 27 mmol/L (22-28); GLUCOSE,RANDOM 69 mg/dl (74-106); MAGNESIUM 1.7 mg/dL (1.8-2.4); PHOSPHOROUS 3.4 mg/dl (2.5-4.6); SGOT/AST 18 U/L (10-42); SGPT/ALT 17 U/L (10-40); TOT PROT 5.9 g/dl (6.4-8.3)
[2016-12-31 09:23] LABS: URINE APPEARANCE Clear; URINE BILIRUBIN Negative (NEGATIVE); URINE BLOOD Negative (NEGATIVE); URINE GLUCOSE (UA) Negative (NEGATIVE); URINE KETONE Negative (NEGATIVE); URINE LEUK ESTERASE Negative (NEGATIVE); URINE NITRITE Negative (NEGATIVE); URINE PROTEIN 1+ (NEGATIVE); URINE UROBILINOGEN 0.2 (0.2-1.0)
[2016-12-31 09:24] LABS: URINE COLOR AMBER
[2016-12-31 09:39] LABS: URINE WBC 0-2 (3-5)
[2016-12-31] MEDS ORDERED: CEFTRIAXONE 1 G/50 ML PREMIX 50 ML IVPB SCH (10:00)
[2016-12-31] MEDS ORDERED: HEPARIN NA (PORCINE) 5,000 UNITS/ML 1ML VIAL SQ SCH (10:00)
[2016-12-31] MEDS ORDERED: METRONIDAZOLE 500 MG PREMIXED 100 ML IVPB SCH (10:00)
--- NOTE | 2016-12-31 13:41 | HP ---
CHIEF COMPLAINT: PCP: HISTORY OF PRESENT ILLNESS: ER course was notable for: (1) (2) (3) Recent Travel: PAST MEDICAL HISTORY: PAST SURGICAL HISTORY: Social History: Smoking: Alcohol: Drugs: Family History: Allergies levofloxacin [From Levaquin] Allergy (Intermediate, Verified 12/31/16 04:14) Itching rashes No Known Drug Allergies Allergy (Verified 12/30/16 22:10) DENIES HOME MEDICATIONS: Home Medications Medication Instructions Recorded Atenolol [Tenormin -] 50 mg PO DAILY #0 tablet 08/02/12 Olmesartan Medoxomil [Benicar -] 20 mg PO DAILY 09/29/14 Escitalopram Oxalate [Lexapro -] 20 mg PO DAILY 01/20/15 Simvastatin 40 mg PO DAILY 06/09/16 REVIEW OF SYSTEMS CONSTITUTIONAL: Absent: fever, chills, diaphoresis, generalized weakness, malaise, loss of appetite, weight change HEENT: Absent: rhinorrhea, nasal congestion, throat pain, throat swelling, difficulty swallowing, mouth swelling, ear pain, eye pain, visual changes CARDIOVASCULAR: Absent: chest pain, syncope, palpitations, irregular heart rate, lightheadedness , peripheral edema RESPIRATORY: Absent: cough, shortness of breath, dyspnea with exertion, orthopnea, wheezing, stridor, hemoptysis GASTROINTESTINAL: Absent: abdominal pain, abdominal distension, nausea, vomiting, diarrhea, constipation, melena, hematochezia GENITOURINARY: Absent: dysuria, frequency, urgency, hesitancy, hematuria, flank pain, genital pain MUSCULOSKELETAL: Absent: myalgia, arthralgia, joint swelling, back pain, neck pain SKIN: Absent: rash, itching, pallor HEMATOLOGIC/IMMUNOLOGIC: Absent: easy bleeding, easy bruising, lymphadenopathy, frequent infections ENDOCRINE: Absent: unexplained weight gain, unexplained weight loss, heat intolerance, cold intolerance NEUROLOGIC: Absent: headache, focal weakness or paresthesias, dizziness, unsteady gait, seizure, mental status changes, bladder or bowel incontinence PSYCHIATRIC: Absent: anxiety, depression, suicidal or homicidal ideation, hallucinations. PHYSICAL EXAMINATION Vital Signs - 24 hr 12/31/16 12/31/16 12/31/16 03:42 04:31 05:22 Temperature 98.3 F 97.9 F 97.9 F Pulse Rate 62 62 Pulse Rate [ 68 Right Radial] Respiratory 20 17 17 Rate Blood Pressure 145/80 145/80 Blood Pressure 147/80 [Left Arm] O2 Sat by Pulse 97 94 L 94 L Oximetry (%) 12/31/16 12/31/16 06:05 08:54 Temperature 98.0 F Pulse Rate 60 Pulse Rate [ Right Radial] Respiratory 18 18 Rate Blood Pressure 137/75 Blood Pressure [Left Arm] O2 Sat by Pulse 94 L Oximetry (%) GENERAL: Awake, alert, and fully oriented, in no acute distress. HEAD: Normal with no signs of trauma. EYES: Pupils equal, round and reactive to light, extraocular movements intact, sclera anicteric, conjunctiva clear. No lid lag. EARS, NOSE, THROAT: Ears normal, nares patent, oropharynx clear without exudates. Moist mucous membranes. NECK: Normal range of motion, supple without lymphadenopathy, JVD, or masses. LUNGS: Breath sounds equal, clear to auscultation bilaterally. No wheezes, and no crackles. No accessory muscle use. HEART: Regular rate and rhythm, normal S1 and S2 without murmur, rub or gallop. ABDOMEN: Soft, nontender, not distended, normoactive bowel sounds, no guarding, no rebound, no masses. No hepatomegaly or splenomegaly. MUSCULOSKELETAL: Normal range of motion at all joints. No bony deformities or tenderness. No CVA tenderness. UPPER EXTREMITIES: 2+ pulses, warm, well-perfused. No cyanosis. No clubbing. No peripheral edema. LOWER EXTREMITIES: 2+ pulses, warm, well-perfused. No calf tenderness. No peripheral edema. NEUROLOGICAL: Cranial nerves II-XII intact. Normal speech. Normal gait. PSYCHIATRIC: Cooperative. Good eye contact. Appropriate mood and affect. SKIN: Warm, dry, normal turgor, no rashes or lesions noted, normal capillary refill. Laboratory Results - last 24 hr 3 12/31/16 12/31/16 12/31/16 05:00 07:20 07:20 WBC 10.4 RBC 4.83 Hgb 14.3 D Hct 43.4 MCV 89.9 MCH 29.6 MCHC 32.9 RDW 12.6 Plt Count 200 MPV 9.2 Sodium 137 Potassium 4.6 Chloride 105 Carbon Dioxide 27 Anion Gap 5 L BUN 15 Creatinine 1.0 Creat Clearance w eGFR > 60 Random Glucose 69 L D Calcium 8.7 Phosphorus 3.4 Magnesium 1.7 L Total Bilirubin 0.8 D AST 18 D ALT 17 Alkaline Phosphatase 42 Total Protein 5.9 L Albumin 3.4 L Urine Color [place] Urine Appearance Clear Urine pH 5.0 D Ur Specific [place] <= 1.005 Urine Protein 1+ H Urine Glucose (UA) Negative Urine Ketones Negative Urine Blood Negative Urine Nitrite Negative Urine Bilirubin Negative Urine Urobilinogen 0.2 Ur Leukocyte Esterase Negative Urine WBC 0-2 ECG Sinus rhythm with 1st degree AV block Left axis deviation LBBB unchange when compared with ECG 12/08/16 ASSESSMENT/PLAN:
--- NOTE | 2016-12-31 13:54 | DS ---
Physical Exam: SUBJECTIVE: Patient seen and examined OBJECTIVE: Vital Signs Period Temp Pulse Resp BP Sys/[place] Pulse Ox Last 24 Hr 97.9 F-98.3 F 60-68 17-20 137-147/75-80 94-97 PHYSICAL EXAM GENERAL: The patient is awake, alert, and fully oriented, in no acute distress. HEAD: Normal with no signs of trauma. EYES: PERRL, extraocular movements intact, sclera anicteric, conjunctiva clear. ENT: Ears normal, nares patent, oropharynx clear without exudates, moist mucous membranes. NECK: Trachea midline, full range of motion, supple. LUNGS: Breath sounds equal, clear to auscultation bilaterally, no wheezes, no crackles, no accessory muscle use. HEART: Regular rate and rhythm, S1, S2 without murmur, rub or gallop. ABDOMEN: Soft, nontender, nondistended, normoactive bowel sounds, no guarding, no rebound, no hepatosplenomegaly, no masses. EXTREMITIES: 2+ pulses, warm, well-perfused, no edema. NEUROLOGICAL: Cranial nerves II through XII grossly intact. Normal speech, gait not observed. PSYCH: Normal mood, normal affect. SKIN: Warm, dry, normal turgor, no rashes or lesions noted. LABS Laboratory Results - last 24 hr 12/31/16 12/31/16 12/31/16 05:00 07:20 07:20 WBC 10.4 RBC 4.83 Hgb 14.3 D Hct 43.4 MCV 89.9 MCH 29.6 MCHC 32.9 RDW 12.6 Plt Count 200 MPV 9.2 Sodium 137 Potassium 4.6 Chloride 105 Carbon Dioxide 27 Anion Gap 5 L BUN 15 Creatinine 1.0 Creat Clearance w eGFR > 60 Random Glucose 69 L D Calcium 8.7 Phosphorus 3.4 Magnesium 1.7 L Total Bilirubin 0.8 D AST 18 D ALT 17 Alkaline Phosphatase 42 Total Protein 5.9 L Albumin 3.4 L Urine Color [place] Urine Appearance Clear Urine pH 5.0 D Ur Specific [place] <= 1.005 Urine Protein 1+ H Urine Glucose (UA) Negative Urine Ketones Negative Urine Blood Negative Urine Nitrite Negative Urine Bilirubin Negative Urine Urobilinogen 0.2 Ur Leukocyte Esterase Negative Urine WBC 0-2 HOSPITAL COURSE: Date of Admission:12/31/16 Date of Discharge: 12/31/16 Discharge Summary Reason For Visit: DIVERTICULITIS Current Active Problems Diverticulitis (Acute) Condition: Stable - Instructions Diet, Activity, Other Instructions: Return to the Emergency Department for new, worsening or persistent abdominal pain. Resume your usual diet and activities as tolerated. Follow up with your primary care provider in 1-2 weeks. Referrals: Alessandro Lovett MD [Staff Physician] - 1 Week Disposition: HOME - Home Medications Comprehensive Discharge Medication List: Ambulatory Orders Atenolol [Tenormin -] 50 mg PO DAILY #0 tablet 08/02/12 Olmesartan Medoxomil [Benicar -] 20 mg PO DAILY 09/29/14 Escitalopram Oxalate [Lexapro -] 20 mg PO DAILY 01/20/15 Simvastatin 40 mg PO DAILY 06/09/16
[2016-12-31] MEDS ORDERED: MAGNESIUM SULF 50% (8.12 MEQ/2 ML-1 GM VIAL) IVPB ONE (14:30)
[2016-12-31 14:37] VITALS: BP 155/84; PULSE 73; TEMP 98.3
--- NOTE | 2017-01-03 18:32 | EKG ---
Test Reason : Blood Pressure : / mmHG Vent. Rate : 062 BPM Atrial Rate : 062 BPM P-R Int : 216 ms QRS Dur : 140 ms QT Int : 474 ms P-R-T Axes : -15 -30 046 degrees QTc Int : 481 ms SINUS RHYTHM WITH 1ST DEGREE A-V BLOCK LEFT AXIS DEVIATION LEFT BUNDLE BRANCH BLOCK ABNORMAL ECG WHEN COMPARED WITH ECG OF 08-DEC-2016 13:39, NO SIGNIFICANT CHANGE WAS FOUND REPEAT EKG IF CLINICALLY INDICATED Confirmed by TRE HENDRICKSON MD ([id number]) on 01/03/2017 6:32:16 PM Referred By: MD TEJEDA Confirmed By:TRE HENDRICKSON MD
== END 2016-12-31 15:38 | disposition home or self-care (01) ==
LOC: FER 22:09 → FM/S 12-31 02:53
PROVIDERS: ADMIT Internal Medicine; ATTEND Nurse Practitioner Family
PROC: 3E0333Z Introduction of Anti-inflammatory into Peripheral Vein, Percutaneous Approach (ICD-10-PCS; principal; 2016-12-31)
PROC: 3E033NZ Introduction of Analgesics, Hypnotics, Sedatives into Peripheral Vein, Percutaneous Approach (ICD-10-PCS; 2016-12-31)
PROC: 3E033GC Introduction of Other Therapeutic Substance into Peripheral Vein, Percutaneous Approach (ICD-10-PCS; 2016-12-31)
PROC: 3E0337Z Introduction of Electrolytic and Water Balance Substance into Peripheral Vein, Percutaneous Approach (ICD-10-PCS; 2016-12-31)
PROC: 3E013GC Introduction of Other Therapeutic Substance into Subcutaneous Tissue, Percutaneous Approach (ICD-10-PCS; 2016-12-31)
DX: K57.92 Diverticulitis of intestine, part unspecified, without perforation or abscess without bleeding (principal); I10 Essential (primary) hypertension; E78.5 Hyperlipidemia, unspecified; F41.9 Anxiety disorder, unspecified; K21.9 Gastro-esophageal reflux disease without esophagitis; Z95.5 Presence of coronary angioplasty implant and graft; Z87.891 Personal history of nicotine dependence
CPT/HCPCS: 36415; 71010-TC; 71020-TC; 74020-TC; 74177-TC; 76705-TC; 80053; 81003; 81015; 82550; 83690; 83735; 84100; 84484; 85025; 85027; 93005; 96361; 96365; 96367; 96372; 96375; 99283-25; G0378; J1644

== ENCOUNTER 2017-02-26 09:45 | Emergency (ER) | payer OTHER, BC ==
[2017-02-26] MEDS ORDERED: SODIUM CHLORIDE 0.9% 1000 ML INFUS.BAG IV ONE (09:56)
[2017-02-26] MEDS ORDERED: ALPRAZolam 1 MG TABLET PO PRN (09:57)
[2017-02-26] MEDS ORDERED: ALPRAZolam 0.25 MG TABLET ONE (10:00)
--- NOTE | 2017-02-26 10:06 | PDOC ---
History of Present Illness - General Chief Complaint: Pain Stated Complaint: ABD PAIN Time Seen by Provider: 02/26/17 09:52 - History of Present Illness Initial Comments: 02/26/17 10:07 89yo male presents with his son for eval of abd pain that started last night. Denies f/c. No n/v/d. States pain across his mid-abd. Last BM was this AM and normal. States he took his morning meds, but did not take his klonopin or xanax. Pt states he does feel anxious and always feels anxious. Per the son, the patient gets abd pain every holiday from his anxiety. Pt denies cp/sob/ cough. No solorio. No neck pain. No paresthesias. No dysuria. Pt ambulated into the ED from home. Pt c/o feeling anxious and appears anxious in the bed. PMHx: CAD, Anxiety, diverticulitis, htn, hld, CHF PShx: yadira, PCI/STENT Allergies: levoquin Denies smoking, drinking, drug use Past History - Past Medical History Allergies/Adverse Reactions: Allergies Allergy/AdvReac Type Severity Reaction Status Date / Time levofloxacin [From Levaquin] Allergy Intermediate Itching Verified 12/31/16 04: 14 Home Medications: Ambulatory Orders Atenolol [Tenormin -] 50 mg PO DAILY #0 tablet 08/02/12 Olmesartan Medoxomil [Benicar -] 20 mg PO DAILY 09/29/14 Escitalopram Oxalate [Lexapro -] 20 mg PO DAILY 01/20/15 Simvastatin 40 mg PO DAILY 06/09/16 Anemia: No Asthma: No Cancer: No Cardiac Disorders: Yes (STENTX2 2008) CVA: No COPD: No CHF: No Dementia: No Diabetes: No Dialysis: No GI Disorders: Yes (GERD, DIVERTICULITIS) Disorders: No HTN: Yes Hypercholesterolemia: Yes Liver Disease: No Psychiatric Problems: Yes (ANXIETY) Seizures: No Thyroid Disease: No Lung CA: Yes (CHRONIC ANXIETY) - Surgical History Abdominal Surgery: No Appendectomy: No Cardiac Surgery: Yes (STENT 2008) Cholecystectomy: Yes Lung Surgery: No Neurologic Surgery: No Orthopedic Surgery: No - Suicide/Smoking/Psychosocial Hx Smoking Status: No Smoking History: Former smoker Have you smoked in the past 12 months: No Number of Cigarettes Smoked Daily: 20 If you are a former smoker, when did you quit?: 1974 Information on smoking cessation initiated: No Hx Alcohol Use: Yes (OCCASIONAL) Drug/Substance Use Hx: No Substance Use Type: None Hx Substance Use Treatment: No Review of Systems - Review of Systems Able to Perform ROS?: Yes Is the patient limited Welsh proficient: No Constitutional: No: Chills, Fever, Malaise, Weakness HEENTM: No: Eye Pain, Nose Pain, Nose Congestion, Throat Pain, Throat Swelling Respiratory: No: Cough, Orthopnea, Shortness of Breath, SOB at Rest, Productive cough Cardiac (ROS): No: Chest Pain, Irregular Heart Rate, Chest Tightness ABD/GI: Yes: Abdominal cramping. No: Constipated, Diarrhea, Nausea, Vomiting : No: Burning, Dysuria Musculoskeletal: No: Back Pain Integumentary: No: Erythema Neurological: No: Headache, Numbness, Paresthesia Psychiatric: Yes: Anxiety All Other Systems: Reviewed and Negative *Physical Exam - Vital Signs Last Vital Signs Temp Pulse Resp BP Pulse Ox 97.6 F 79 18 154/91 97 02/26/17 09:45 02/26/17 09:45 02/26/17 09:45 02/26/17 09:45 02/26/17 09:45 - Physical Exam General Appearance: Yes: Nourished, Appropriately Dressed, Other (anxious) HEENT: positive: EOMI, Normal ENT Inspection, Pharynx Normal Neck: positive: Supple. negative: Rigid, Lymphadenopathy (R) Respiratory/Chest: positive: Lungs Clear, Normal Breath Sounds. negative: Chest Tender, Respiratory Distress Cardiovascular: positive: Regular Rhythm, Regular Rate, S1, S2 Comments:: 02/26/17 10:10 anxious appearing Gastrointestinal/Abdominal: positive: Soft. negative: Tender, Distended, Guarding, Rebound, Tenderness Lymphatic: negative: Adenopathy Musculoskeletal: positive: Normal Inspection. negative: CVA Tenderness Extremity: positive: Normal Capillary Refill, Normal Inspection, Normal Range of Motion. 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 No pain at this time. Pending CHEM, if normal will po challenge and reassess 02/26/17 11:28 pt eating lunch. feeling much better. no pain. tolerated po. requesting to go home. will call Arsen (pts son) to come pick him up. *DC/Admit/Observation/Transfer Diagnosis at time of Disposition: Resolved abdominal pain - Discharge Dispostion Disposition: HOME Condition at time of disposition: Stable Admit: No - Referrals Referrals: Effie Lovett [Primary Care Provider] - - Patient Instructions Printed Discharge Instructions: DI for Anxiety -- Adult, DI for Abdominal Pain- Adult Additional Instructions: Please make an appointment to follow up with your PMD. Please return to the ED with any further complaints. - Post Discharge Activity
[2017-02-26 10:32] VITALS: BP 154/91; PULSE 79; TEMP 97.6; BMI 26.6
[2017-02-26 10:34] LABS: BASO % 0.3 % (0-2.0); EOS % 1.3 % (0-4.5); MCH 30.3 pg (25.7-33.7); MCHC 33.9 g/dl (32.0-35.9); MEAN CELL VOLUME 89.3 fl (80-96); MEAN PLT VOLUME 9.6 fl (7.5-11.1); NEUT % 58.9 % (42.8-82.8); PLATELET COUNT 229 K/MM3 (134-434); RDW 12.1 % (11.9-15.9); WHITE BLOOD COUNT 10.6 K/mm3 (4.0-10.8)
[2017-02-26 10:44] LABS: EOS # 0.1 #; LYMPH # 3.2 # (8-40); NEUT # 6.3 # (42.8-82.8)
[2017-02-26 10:53] LABS: ALBUMIN 4.2 g/dl (3.5-5.0); ALK PHOS 46 U/L (32-92); ANION GAP 11 (8-16); BILIRUBIN,TOTAL 1.1 mg/dl (0.2-1.0); CALCIUM 9.7 mg/dl (8.4-10.2); CO2 23 mmol/L (22-28); CREATININE 0.9 mg/dl (0.6-1.3); GLUCOSE,RANDOM 112 mg/dl (74-106); SGOT/AST 28 U/L (10-42); SGPT/ALT 19 U/L (10-40); TOT PROT 7.2 g/dl (6.4-8.3)
== END 2017-02-26 11:45 | disposition home or self-care (01) ==
LOC: FER 09:45
PROC: 3E0337Z Introduction of Electrolytic and Water Balance Substance into Peripheral Vein, Percutaneous Approach (ICD-10-PCS; principal; 2017-02-26)
DX: R10.9 Unspecified abdominal pain (principal); K21.9 Gastro-esophageal reflux disease without esophagitis; F41.9 Anxiety disorder, unspecified; Z95.5 Presence of coronary angioplasty implant and graft; Z87.891 Personal history of nicotine dependence
CPT/HCPCS: 36415; 80053; 83690; 85025; 99283-25